=== PATIENT | female | born 1940 | race Caucasian/White ===

== ENCOUNTER 2018-03-21 13:46 | Emergency (ER) | payer OTHER ==
[~2018-03-21] VITALS: Ht 162.6 cm; Wt 63.5 kg
[~2018-03-21 13:46] MED LIST: ABAC300; ALL DAY ALLERGY10 M1 PO; ALLERGY RELIE15.8 ML; ASPI81CH PO; CALCIUM; CEPH500 PO; CHOL10002; CHOL10002 PO; CLARITIN10 MG PO; CYCL10 PO; DEXL60CA3 PO; DIVA500ER PO; DOCU100 PO; DONE5 PO; DULO30 PO; DULO60 PO; FERR325 PO; FOLI1 PO; LORA.5 PO; MELA3 PO; MEMA5TAB PO; METTREX2.5 PO; MULVITMIND PO; Midodrine HCl10 MG PO; Moviprep Powde1 EACH PO; NAPR220 PO; NITR100CA PO; NUEDEXTA 20-101 EACH PO; Norco 5-325 Ta1 EACH PO; PANT40 PO; PRED1 PO; PRED20 PO; PREG50 PO; PRILOSEC; Pain Relief500 MG PO; Percocet 5-3251 EACH PO; QUET100 PO; QUET25 PO; QUETIAPINE FUMA50 MG PO; RANI150 PO; RXHYD5325 PO; RXOXYACE PO; TRAM50 PO; TRAZ100 PO; UNKNOWN PAIN MED; VITAMIN D32000 UNIT PO; Zofran Odt8 MG SL; Zofran4 MG PO; ativan; divalproex; melatonin; milk of magnesia; tylenol
== END 2018-03-21 16:31 | disposition home or self-care (01) ==
LOC: ER 13:46
DX: T14.8XXA Other injury of unspecified body region, initial encounter (principal); M54.6 Pain in thoracic spine; K21.9 Gastro-esophageal reflux disease without esophagitis; F03.90 Unspecified dementia, unspecified severity, without behavioral disturbance, psychotic disturbance, mood disturbance, and anxiety; Z88.8 Allergy status to other drugs, medicaments and biological substances; Z79.899 Other long term (current) drug therapy; Z79.82 Long term (current) use of aspirin; Z79.52 Long term (current) use of systemic steroids; Z87.891 Personal history of nicotine dependence; W18.30XA Fall on same level, unspecified, initial encounter
CPT/HCPCS: 72080; 99283-25

== ENCOUNTER → 2018-04-16 | Outpatient (CLI) | payer OTHER ==
[~2018-04-16] MED LIST changes: +Cranberry500 MG PO
[2018-04-16 10:55] LABS: Source, Urine Clean Catch
[2018-04-16 11:15] LABS: Bilirubin, Urine Neg (Neg); Blood, Urine Neg (Neg); Glucose Qualitative, Urine Neg (Neg); Ketones, Urine Neg (Neg); Leukocyte Esterase, Urine 1+ (Neg); Nitrite, Urine Neg (Neg); Protein, Urine Neg (Neg); Specific Gravity, Urine 1.015 (1.003-1.022); Urobilinogen, Urine NORM (Normal)
[2018-04-16 11:33] LABS: Appearance, Urine Clear (Clear); Color, Urine Yellow (P-Yellow)
[2018-04-16 11:35] LABS: Red Blood Cells, Urine 0-2 /hpf (0-2)
[2018-04-16 11:36] LABS: Squamous Epithelial Cells Few /hpf (Few)
[2018-04-16 11:37] LABS: Bacteria Many /hpf
== END ==
LOC: LAB SHORT 10:52 → LAB 10:52
PROVIDERS: Nurse Practitioner Family
DX: N39.0 Urinary tract infection, site not specified (principal)
CPT/HCPCS: 81001

== ENCOUNTER 2018-04-17 15:20 | Emergency (ER) | payer OTHER ==
[~2018-04-17] VITALS: Ht 160 cm; Wt 63.5 kg
[~2018-04-17 15:20] MED LIST changes: -Cranberry500 MG PO
[2018-04-17 16:04] LABS: Source, Urine Catheter
[2018-04-17] MEDS ORDERED: Cranberry500 MG PO (16:05)
[2018-04-17 16:08] LABS: Appearance, Urine Clear (Clear); Bilirubin, Urine Neg (Neg); Blood, Urine Neg (Neg); Color, Urine Yellow (P-Yellow); Glucose Qualitative, Urine Neg (Neg); Ketones, Urine Neg (Neg); Leukocyte Esterase, Urine Neg (Neg); Nitrite, Urine Neg (Neg); Protein, Urine Neg (Neg); Specific Gravity, Urine 1.015 (1.003-1.022); Urobilinogen, Urine NORM (Normal)
[2018-04-17 16:10] LABS: BASOPHILS ABSOLUTE AUTO 0.03 K/mm3 (0.00-0.23); BASOPHILS PERCENT AUTO 1 % (0-2); EOSINOPHILS ABSOLUTE AUTO 0.05 K/mm3 (0.00-0.68); EOSINOPHILS PERCENT AUTO 1 % (0-6); Hematocrit 39.6 % (33.0-51.0); Hemoglobin 13.1 g/dL (11.5-16.0); IMMATURE GRAN ABSOLUTE AUTO 0.02 K/mm3 (0.00-0.10); IMMATURE GRAN PERCENT AUTO 0 % (0-1); LYMPHOCYTES PERCENT AUTO 18 % (21-46); MONOCYTES ABSOLUTE AUTO 0.46 K/mm3 (0.16-1.47); MONOCYTES PERCENT AUTO 7 % (4-13); Mean Corpuscular HGB 32.9 pg (26.0-34.0); Mean Corpuscular HGB Conc 33.1 g/dL (31.5-36.5); Mean Corpuscular Volume 100 fL (80-100); Mean Platelet Volume 11.2 fL (9.1-12.4); NEUTROPHILS ABSOLUTE AUTO 4.76 K/mm3 (1.96-9.15); NEUTROPHILS PERCENT AUTO 73 % (41-73); Platelet Count 151 K/mm3 (150-400); RDW Coefficient Variation 13.9 % (11.7-14.2); RDW Standard Deviation 50.3 fL (35.1-46.3); Red Blood Cell Count 3.98 M/mm3 (3.80-5.20); White Blood Cell Count 6.52 K/mm3 (4.00-11.30)
[2018-04-17 16:22] LABS: International Normalized Ratio 1.19; Prothrombin Time Results 12.1 Sec (9.7-11.5)
[2018-04-17 16:35] LABS: Alanine Aminotransfer (ALT/SGP 20 U/L (12-78); Albumin, Blood 3.2 g/dL (3.4-5.0); Albumin/Globulin Ratio 0.9 (0.8-1.8); Alk Phos 60 U/L (50-136); Anion Gap 8 mmol/L (6-16); Aspartate Aminotrans (AST/SGOT 19 U/L (12-37); Bilirubin, Total 0.4 mg/dL (0.1-1.0); Blood Urea Nitrogen 14 mg/dL (8-24); Bun/Creatinine Ratio 16.9 (12.0-20.0); CO2, Blood 25 mmol/L (21-32); Calcium, Blood 8.4 mg/dL (8.5-10.1); Chloride, Blood 105 mmol/L (98-108); Creatinine, Blood 0.83 mg/dL (0.40-1.00); Globulin, Blood 3.4 g/dL (2.2-4.0); Glomerular Filtration Rate >60 (60-); Glucose, Blood 101 mg/dL (70-99); Magnesium, Blood 2.2 mg/dL (1.6-2.4); Potassium, Blood 3.9 mmol/L (3.5-5.5); Sodium, Blood 138 mmol/L (136-145); Total Protein, Blood 6.6 g/dL (6.4-8.2)
[2018-04-17 17:33] LABS: Valproic Acid 64.6 ug/mL (50.0-100.0)
== END 2018-04-17 18:55 | disposition home or self-care (01) ==
LOC: ER 15:20
PROVIDERS: Physician Assistant
DX: R53.83 Other fatigue (principal); F03.90 Unspecified dementia, unspecified severity, without behavioral disturbance, psychotic disturbance, mood disturbance, and anxiety; K21.9 Gastro-esophageal reflux disease without esophagitis; Z88.8 Allergy status to other drugs, medicaments and biological substances; Z79.899 Other long term (current) drug therapy; Z79.82 Long term (current) use of aspirin; Z87.891 Personal history of nicotine dependence
CPT/HCPCS: 36415; 80053; 80164; 81003; 82947; 83735; 85025; 85610; 93005; 93010; 96360; 99284-25; J7030; P9612

== ENCOUNTER 2018-05-03 10:09 | Emergency (ER) | payer OTHER ==
[~2018-05-03] VITALS: Ht 157.5 cm; Wt 59.0 kg
[~2018-05-03 10:09] MED LIST changes: +Cranberry500 MG PO
[2018-05-03 10:45] LABS: Calcium, Ionized (POC) 1.05 mmol/L (1.10-1.46); Chloride (POC) 104 mmol/L (98-108); Creatinine (POC) 0.9 mg/dL (0.6-1.0); Glucose (ISTAT POC) 78 mg/dL (70-99); Hemoglobin (POC) 12.9 g/dL (12.0-16.0); Potassium (POC) 3.7 mmol/L (3.5-5.5); Sodium (POC) 141 mmol/L (135-148); Total CO2 (POC) 28 mmol/L (21-32)
== END 2018-05-03 13:45 | disposition home or self-care (01) ==
LOC: ER 10:09
PROVIDERS: Emergency Medicine
DX: Z04.3 Encounter for examination and observation following other accident (principal); K21.9 Gastro-esophageal reflux disease without esophagitis; F03.90 Unspecified dementia, unspecified severity, without behavioral disturbance, psychotic disturbance, mood disturbance, and anxiety; Z88.8 Allergy status to other drugs, medicaments and biological substances; Z79.899 Other long term (current) drug therapy; Z79.82 Long term (current) use of aspirin; Z87.891 Personal history of nicotine dependence; W19.XXXA Unspecified fall, initial encounter
CPT/HCPCS: 36415; 70450; 80047; 85014; 93005; 93010; 99284-25

== ENCOUNTER 2018-05-04 20:48 | Emergency (ER) | payer OTHER ==
[~2018-05-04] VITALS: Ht 165.1 cm; Wt 61.2 kg
== END 2018-05-04 22:26 | disposition home or self-care (01) ==
LOC: ER 20:48
DX: S80.02XA Contusion of left knee, initial encounter (principal); M54.5 Low back pain; K21.9 Gastro-esophageal reflux disease without esophagitis; F03.90 Unspecified dementia, unspecified severity, without behavioral disturbance, psychotic disturbance, mood disturbance, and anxiety; Z88.8 Allergy status to other drugs, medicaments and biological substances; Z79.899 Other long term (current) drug therapy; Z79.82 Long term (current) use of aspirin; Z87.891 Personal history of nicotine dependence; W19.XXXA Unspecified fall, initial encounter
CPT/HCPCS: 72100; 73560-LT; 99283-25

== ENCOUNTER 2018-07-03 05:38 | Emergency (ER) | payer OTHER ==
[~2018-07-03] VITALS: Ht 157.5 cm; Wt 68.0 kg
[2018-07-03 06:45] LABS: Calcium, Ionized (POC) 1.06 mmol/L (1.10-1.46); Chloride (POC) 104 mmol/L (98-108); Glucose (ISTAT POC) 78 mg/dL (70-99); Hemoglobin (POC) 11.6 g/dL (12.0-16.0); Potassium (POC) 3.6 mmol/L (3.5-5.5); Sodium (POC) 141 mmol/L (135-148); Total CO2 (POC) 27 mmol/L (21-32)
[2018-07-03 07:20] LABS: Chloride (POC) 104 mmol/L (98-108); Glucose (ISTAT POC) 76 mg/dL (70-99); Hemoglobin (POC) 11.9 g/dL (12.0-16.0); Potassium (POC) 3.6 mmol/L (3.5-5.5); Sodium (POC) 141 mmol/L (135-148); Total CO2 (POC) 28 mmol/L (21-32)
[2018-07-03 07:20] LABS: Source, Urine Clean Catch
[2018-07-03 07:25] LABS: Bilirubin, Urine Neg (Neg); Blood, Urine 3+ (Neg); Glucose Qualitative, Urine Neg (Neg); Ketones, Urine 1+ (Neg); Leukocyte Esterase, Urine 3+ (Neg); Nitrite, Urine Pos (Neg); Protein, Urine 1+ (Neg); Specific Gravity, Urine 1.015 (1.003-1.022); Urobilinogen, Urine 1+ (Normal)
[2018-07-03 07:36] LABS: Appearance, Urine Cloudy (Clear); Color, Urine Yellow (P-Yellow)
[2018-07-03 07:38] LABS: Bacteria Many /hpf; Red Blood Cells, Urine 0-2 /hpf (0-2); Squamous Epithelial Cells Few /hpf (Few); White Blood Cells, Urine TNTC /hpf (0-5)
[2018-07-03] MEDS ORDERED: Macrobid 100 M100 MG PO (07:42)
== END 2018-07-03 09:29 | disposition home or self-care (01) ==
LOC: ER 05:38
PROVIDERS: Emergency Medicine
DX: S00.01XA Abrasion of scalp, initial encounter (principal); F03.90 Unspecified dementia, unspecified severity, without behavioral disturbance, psychotic disturbance, mood disturbance, and anxiety; K21.9 Gastro-esophageal reflux disease without esophagitis; Z88.8 Allergy status to other drugs, medicaments and biological substances; Z79.899 Other long term (current) drug therapy; Z79.82 Long term (current) use of aspirin; Z87.891 Personal history of nicotine dependence; W01.0XXA Fall on same level from slipping, tripping and stumbling without subsequent striking against object, initial encounter
CPT/HCPCS: 70450; 80047; 81001; 85014; 87077; 87086; 87186; 93005; 93010; 99284-25

== ENCOUNTER 2018-09-11 19:20 | Emergency (ER) | payer OTHER ==
[~2018-09-11] VITALS: Ht 157.5 cm; Wt 77.1 kg
[~2018-09-11 19:20] MED LIST changes: +Keflex500 MG PO; +Macrobid 100 M100 MG PO; +Milk Of Ma400 MG/5 M PO; +QUET200 PO; +TRANZAREL120 ML TOP; +Tylenol325 MG PO
[2018-09-11] MEDS ORDERED: MEMA5TAB PO (19:35)
== END 2018-09-11 21:30 | disposition home or self-care (01) ==
LOC: ER 19:20
DX: S09.90XA Unspecified injury of head, initial encounter (principal); Z88.8 Allergy status to other drugs, medicaments and biological substances; Z79.899 Other long term (current) drug therapy; Z79.82 Long term (current) use of aspirin; Z79.52 Long term (current) use of systemic steroids; K21.9 Gastro-esophageal reflux disease without esophagitis; Z87.891 Personal history of nicotine dependence; W18.30XA Fall on same level, unspecified, initial encounter
CPT/HCPCS: 70450; 99284-25

== ENCOUNTER → 2018-09-18 | Outpatient (CLI) | payer OTHER ==
[2018-09-18 11:19] LABS: Source, Urine Voided
[2018-09-18 11:43] LABS: Appearance, Urine Hazy (Clear); Bilirubin, Urine Neg (Neg); Blood, Urine Neg (Neg); Color, Urine Yellow (P-Yellow); Glucose Qualitative, Urine Neg (Neg); Ketones, Urine Neg (Neg); Leukocyte Esterase, Urine Neg (Neg); Nitrite, Urine Neg (Neg); Protein, Urine Neg (Neg); Specific Gravity, Urine 1.015 (1.003-1.022); Urobilinogen, Urine NORM (Normal)
[2018-09-18 17:16] LABS: Amorphous Light (0-Heavy); Bacteria Few /hpf; Red Blood Cells, Urine Not Seen /hpf (0-2); Squamous Epithelial Cells Rare /hpf (Few); White Blood Cells, Urine 0-2 /hpf (0-5)
== END | disposition home or self-care (01) ==
LOC: LAB SHORT 09:30 → LAB 09:30
PROVIDERS: Nurse Practitioner Family
DX: Z79.01 Long term (current) use of anticoagulants (principal); Z51.81 Encounter for therapeutic drug level monitoring; N39.0 Urinary tract infection, site not specified
CPT/HCPCS: 81001

== ENCOUNTER → 2018-10-02 | Outpatient (CLI) | payer OTHER ==
[2018-10-02 11:03] LABS: Source, Urine Clean Catch
[2018-10-02 11:12] LABS: Blood, Urine 1+ (Neg); Glucose Qualitative, Urine Neg (Neg); Ketones, Urine 1+ (Neg); Leukocyte Esterase, Urine 2+ (Neg); Nitrite, Urine Neg (Neg); Protein, Urine 2+ (Neg); Specific Gravity, Urine 1.025 (1.003-1.022); Urobilinogen, Urine 2+ (Normal)
[2018-10-02 11:42] LABS: Bilirubin, Urine 1+ (Neg)
[2018-10-02 11:47] LABS: Appearance, Urine Hazy (Clear); Color, Urine Yellow (P-Yellow); Red Blood Cells, Urine 0-2 /hpf (0-2); Squamous Epithelial Cells Few /hpf (Few)
[2018-10-02 11:48] LABS: Bacteria Few /hpf; Calcium Oxalate Crystals Many /hpf; Hyaline Casts Rare /lpf (0-2); Mucus Light ({null, 0-Heavy})
== END | disposition home or self-care (01) ==
LOC: LAB SHORT 07:30 → LAB 07:30
PROVIDERS: Nurse Practitioner Family
DX: N39.0 Urinary tract infection, site not specified (principal)
CPT/HCPCS: 81001; 87077; 87086; 87186

== ENCOUNTER → 2019-01-01 | Outpatient (CLI) | payer OTHER ==
[2019-01-01 11:23] LABS: Appearance, Urine Clear (Clear); Bilirubin, Urine Neg (Neg); Blood, Urine Neg (Neg); Color, Urine Yellow (P-Yellow); Glucose Qualitative, Urine Neg (Neg); Ketones, Urine Neg (Neg); Leukocyte Esterase, Urine 2+ (Neg); Nitrite, Urine Neg (Neg); Protein, Urine Neg (Neg); Urobilinogen, Urine 1+ (Normal)
[2019-01-01 11:33] LABS: Bacteria Few /hpf; Red Blood Cells, Urine 0-2 /hpf (0-2); Squamous Epithelial Cells Few /hpf (Few)
== END | disposition home or self-care (01) ==
LOC: LAB SHORT 11:07 → LAB 11:07
PROVIDERS: Nurse Practitioner Family
DX: N39.0 Urinary tract infection, site not specified (principal); R41.82 Altered mental status, unspecified
CPT/HCPCS: 81001; 87077; 87086; 87186

== ENCOUNTER 2019-02-08 16:02 | Emergency (ER) | payer OTHER ==
[~2019-02-08] VITALS: Ht 157.5 cm; Wt 54.4 kg
[2019-02-08 17:07] LABS: Source, Urine Clean Catch
[2019-02-08] MEDS ORDERED: MEMA10 PO (17:14)
[2019-02-08 17:16] LABS: Bilirubin, Urine Neg (Neg); Blood, Urine Neg (Neg); Glucose Qualitative, Urine Neg (Neg); Ketones, Urine Neg (Neg); Leukocyte Esterase, Urine 1+ (Neg); Nitrite, Urine Neg (Neg); Protein, Urine Neg (Neg); Specific Gravity, Urine 1.015 (1.003-1.022); Urobilinogen, Urine NORM (Normal); pH, Urine 6.5 (5.0-8.0)
[2019-02-08] MEDS ORDERED: NUEDEXTA 20-101 EACH PO (17:16)
[2019-02-08] MEDS ORDERED: QUETIAPINE FUM100 MG PO (17:17)
[2019-02-08 17:35] LABS: Appearance, Urine Clear (Clear); Color, Urine Yellow (P-Yellow)
[2019-02-08 17:38] LABS: Bacteria Few /hpf; Red Blood Cells, Urine 0-2 /hpf (0-2); Squamous Epithelial Cells Rare /hpf (Few)
[2019-02-08] MEDS ORDERED: Cipro500 MG PO (18:11)
== END 2019-02-08 19:03 | disposition home or self-care (01) ==
LOC: ER 16:02
PROVIDERS: Physician Assistant
DX: G30.9 Alzheimer's disease, unspecified (principal); F02.80 Dementia in other diseases classified elsewhere, unspecified severity, without behavioral disturbance, psychotic disturbance, mood disturbance, and anxiety; N39.0 Urinary tract infection, site not specified; Z87.891 Personal history of nicotine dependence; K21.9 Gastro-esophageal reflux disease without esophagitis
CPT/HCPCS: 71046; 81001; 87086; 93005; 93010; 96360; 99285-25; J7030

== ENCOUNTER 2019-04-07 07:56 | Inpatient (IN) | payer OTHER ==
[~2019-04-07] VITALS: Ht 167.6 cm; Wt 59.3 kg
[~2019-04-07 07:56] MED LIST changes: +Cipro500 MG PO; +MEMA10 PO; +QUETIAPINE FUM100 MG PO
[2019-04-07 09:23] LABS: BASOPHILS ABSOLUTE AUTO 0.06 K/mm3 (0.00-0.23); BASOPHILS PERCENT AUTO 1 % (0-2); EOSINOPHILS ABSOLUTE AUTO 0.15 K/mm3 (0.00-0.68); EOSINOPHILS PERCENT AUTO 2 % (0-6); Hematocrit 38.7 % (33.0-51.0); Hemoglobin 12.5 g/dL (11.5-16.0); IMMATURE GRAN ABSOLUTE AUTO 0.01 K/mm3 (0.00-0.10); IMMATURE GRAN PERCENT AUTO 0 % (0-1); LYMPHOCYTES ABSOLUTE AUTO 2.29 K/mm3 (0.84-5.20); LYMPHOCYTES PERCENT AUTO 37 % (21-46); MONOCYTES ABSOLUTE AUTO 0.61 K/mm3 (0.16-1.47); MONOCYTES PERCENT AUTO 10 % (4-13); Mean Corpuscular HGB 33.5 pg (26.0-34.0); Mean Corpuscular HGB Conc 32.3 g/dL (31.5-36.5); Mean Corpuscular Volume 104 fL (80-100); Mean Platelet Volume 11.7 fL (9.1-12.4); NEUTROPHILS ABSOLUTE AUTO 3.06 K/mm3 (1.96-9.15); NEUTROPHILS PERCENT AUTO 49 % (41-73); Platelet Count 151 K/mm3 (150-400); RDW Coefficient Variation 14.6 % (11.7-14.2); RDW Standard Deviation 55.2 fL (35.1-46.3); Red Blood Cell Count 3.73 M/mm3 (3.80-5.20); White Blood Cell Count 6.18 K/mm3 (4.00-11.30)
[2019-04-07 09:48] LABS: Alanine Aminotransfer (ALT/SGP 24 U/L (12-78); Albumin, Blood 3.3 g/dL (3.4-5.0); Alk Phos 60 U/L (50-136); Anion Gap 7 mmol/L (6-16); Aspartate Aminotrans (AST/SGOT 23 U/L (12-37); Bilirubin, Total 0.5 mg/dL (0.1-1.0); Blood Urea Nitrogen 17 mg/dL (8-24); Bun/Creatinine Ratio 21.7 (12.0-20.0); CO2, Blood 29 mmol/L (21-32); Calcium, Blood 8.5 mg/dL (8.5-10.1); Chloride, Blood 107 mmol/L (98-108); Creatinine, Blood 0.78 mg/dL (0.40-1.00); Globulin, Blood 3.3 g/dL (2.2-4.0); Glomerular Filtration Rate >60 (60-); Glucose, Blood 76 mg/dL (70-99); Potassium, Blood 3.6 mmol/L (3.5-5.5); Sodium, Blood 143 mmol/L (136-145); Total Protein, Blood 6.6 g/dL (6.4-8.2)
[2019-04-07] MEDS ORDERED: NUEDEXTA 20-101 EACH PO (12:33)
--- NOTE | 2019-04-07 12:58 | NUR ---
FENTANYL GIVEN BEFORE REPOSITIONING, PT TOLERATED WELL, DAUGHTER AT BEDSIDE.
[2019-04-07] MEDS ORDERED: ASPI81CH PO (13:01)
[2019-04-07] MEDS ORDERED: DIVA500ER PO (13:01)
--- NOTE | 2019-04-07 18:05 | NUR ---
PT TAKEN TO OR.
[2019-04-07 22:19] LABS: BASOPHILS ABSOLUTE AUTO 0.03 K/mm3 (0.00-0.23); BASOPHILS PERCENT AUTO 0 % (0-2); EOSINOPHILS PERCENT AUTO 0 % (0-6); Hematocrit 36.4 % (33.0-51.0); IMMATURE GRAN ABSOLUTE AUTO 0.05 K/mm3 (0.00-0.10); IMMATURE GRAN PERCENT AUTO 0 % (0-1); LYMPHOCYTES ABSOLUTE AUTO 0.42 K/mm3 (0.84-5.20); LYMPHOCYTES PERCENT AUTO 4 % (21-46); MONOCYTES ABSOLUTE AUTO 0.28 K/mm3 (0.16-1.47); MONOCYTES PERCENT AUTO 2 % (4-13); Mean Corpuscular HGB 34.4 pg (26.0-34.0); Mean Corpuscular Volume 104 fL (80-100); Mean Platelet Volume 12.1 fL (9.1-12.4); NEUTROPHILS ABSOLUTE AUTO 10.79 K/mm3 (1.96-9.15); NEUTROPHILS PERCENT AUTO 93 % (41-73); Platelet Count 150 K/mm3 (150-400); RDW Coefficient Variation 14.6 % (11.7-14.2); RDW Standard Deviation 54.8 fL (35.1-46.3); Red Blood Cell Count 3.49 M/mm3 (3.80-5.20); White Blood Cell Count 11.57 K/mm3 (4.00-11.30)
--- NOTE | 2019-04-08 06:43 | NUR ---
SUMMARY PT HAS DONE WELL THROUGH THE NIGHT. SHE WAS NAUSEATED X2 SHORTLY AFTER RETURNING TO THE FLOOR ZOFRAN WAS GIVEN. PT HAS BEEN ABLE TO HOLD DOWN PUDDING, WATER AND HER NIGHT MEDS SINCE THEN. PAIN MEDICATED WITH 25 MCG IV FENTANYL X2. ANITA NICOLAS REMAINS C/D/I. CIRC WNL. PRESTON PATENT, CLEAR YELLOW URINE NOTED, FREQUENT REORIENTATION PROVIDED DUE TO CONFUSION/DEMENTIA. BED ALARM IS ON FOR SAFETY. PT HAS REMAINED CALM AND COOPERATIVE. THE PT'S SON WAS AT THE BEDSIDE FOR A FEW HRS AFTER SURGERY AND HER DAUGHTER (RACHEL) WAS CALLED WITH AN UPDATE PER HER REQUEST THROUGH THE NIGHT. CALL LIGHT IN REACH.
[2019-04-08 09:41] LABS: BASOPHILS ABSOLUTE AUTO 0.02 K/mm3 (0.00-0.23); BASOPHILS PERCENT AUTO 0 % (0-2); EOSINOPHILS PERCENT AUTO 0 % (0-6); Hematocrit 33.9 % (33.0-51.0); Hemoglobin 11.2 g/dL (11.5-16.0); IMMATURE GRAN ABSOLUTE AUTO 0.03 K/mm3 (0.00-0.10); IMMATURE GRAN PERCENT AUTO 0 % (0-1); LYMPHOCYTES ABSOLUTE AUTO 0.72 K/mm3 (0.84-5.20); LYMPHOCYTES PERCENT AUTO 7 % (21-46); MONOCYTES ABSOLUTE AUTO 1.15 K/mm3 (0.16-1.47); MONOCYTES PERCENT AUTO 11 % (4-13); Mean Corpuscular HGB 33.5 pg (26.0-34.0); Mean Corpuscular Volume 102 fL (80-100); Mean Platelet Volume 11.9 fL (9.1-12.4); NEUTROPHILS ABSOLUTE AUTO 8.65 K/mm3 (1.96-9.15); NEUTROPHILS PERCENT AUTO 82 % (41-73); Platelet Count 161 K/mm3 (150-400); RDW Coefficient Variation 14.7 % (11.7-14.2); RDW Standard Deviation 53.3 fL (35.1-46.3); Red Blood Cell Count 3.34 M/mm3 (3.80-5.20); White Blood Cell Count 10.57 K/mm3 (4.00-11.30)
--- NOTE | 2019-04-08 13:02 | NUR ---
04/08/19 1302 Yvette Rodriguez VERIFICATIONS: EDIT CHART.
--- NOTE | 2019-04-08 18:09 | NUR ---
SHIFT SUMMARY PT CONFUSED, PLEASANT & COOPERATIVE, VSS. POD1 ORIF L DISTAL FEMUR, AQUACEL CDI, STRICT NWB. DENIES PAIN. DENIES N&V, MERY PO. AMB STAND/PIVOT W/FWW & GB TO CHAIR TODAY. PRESTON REMOVED, AWAITING POST VOID. NO IV ACCESS NEEDED ORDER BY HOSPITALIST, AFTER PT REMOVED BOTH IVS. PLAN IS TO RETURN PT TO [facility] WHERE SHE RESIDES TOMORROW, WITH HH/PT. WCTM & TX PRN UNTIL REPORT GIVEN TO ONCOMING MEJIA RN.
[2019-04-08 20:14] LABS: BASOPHILS ABSOLUTE AUTO 0.02 K/mm3 (0.00-0.23); BASOPHILS PERCENT AUTO 0 % (0-2); EOSINOPHILS ABSOLUTE AUTO 0.01 K/mm3 (0.00-0.68); EOSINOPHILS PERCENT AUTO 0 % (0-6); Hematocrit 33.3 % (33.0-51.0); Hemoglobin 10.7 g/dL (11.5-16.0); IMMATURE GRAN ABSOLUTE AUTO 0.05 K/mm3 (0.00-0.10); IMMATURE GRAN PERCENT AUTO 0 % (0-1); LYMPHOCYTES ABSOLUTE AUTO 1.61 K/mm3 (0.84-5.20); LYMPHOCYTES PERCENT AUTO 14 % (21-46); MONOCYTES ABSOLUTE AUTO 2.36 K/mm3 (0.16-1.47); MONOCYTES PERCENT AUTO 21 % (4-13); Mean Corpuscular HGB 33.5 pg (26.0-34.0); Mean Corpuscular HGB Conc 32.1 g/dL (31.5-36.5); Mean Corpuscular Volume 104 fL (80-100); Mean Platelet Volume 12.8 fL (9.1-12.4); NEUTROPHILS ABSOLUTE AUTO 7.35 K/mm3 (1.96-9.15); NEUTROPHILS PERCENT AUTO 65 % (41-73); Platelet Count 111 K/mm3 (150-400); RDW Coefficient Variation 14.9 % (11.7-14.2); RDW Standard Deviation 56.5 fL (35.1-46.3); Red Blood Cell Count 3.19 M/mm3 (3.80-5.20)
--- NOTE | 2019-04-09 02:05 | NUR ---
ASSUMED CARE OF PT. PT ALERT/CONFUSED. PT C/O PAIN IN LLE, TYLENOL GIVEN PER ORDERS, ICE APPLIED. BED ALARM ON FOR SAFETY.
--- NOTE | 2019-04-09 05:30 | NUR ---
POD 2 S/P LEFT DISTAL FEMUR REPAIR. PT VSS T/O NIGHT. DRESSINGS CDI. PAIN MGD W/TYLENOL, ICE AND GENTLE REPOSITIONING. PT UNABLE TO VOID THIS SHIFT, I/O CATH DONE FOR BLADDER SCAN >1200. PT CONFUSED, NEEDING FREQUENT REORIENTATION TO PLACE AND EVENT. BED ALARM ON FOR SAFETY. WILL CONT TO MONITOR UNTIL REP GIVEN TO ONCOMING RN.
--- NOTE | 2019-04-09 18:33 | NUR ---
SHIFT SUMMARY PT HAS DONE WELL THIS SHIFT. WORKED WITH THERAPY. UP TO CHAIR MOST OF THE DAY. MEDICATED WITH TYLENOL ONCE AND 5/325MG NORCO ONCE THIS SHIFT. PT VOIDED ONCE GREATER THAN 600ML. BSC W/2 PERSON MAX ASSIST. PLAN IS TO DC BACK TO [facility] ON FRIDAY
--- NOTE | 2019-04-10 07:24 | NUR ---
SHIFT SUMMARY LYING IN LOW FOWLERS WITH EYES CLOSED. HAS RESTED WELL THROUGHOUT SHIFT. C/O PAIN SEVERAL TIMES, REPOSITIONED FOR COMFORT AND MEDICATED X1. DENIES PAIN, DISCOMFORT, OR FURTHER NEEDS AT THIS TIME. SAFETY MEASURES IN PLACE. HAND OFF GIVEN TO Abraham GARNER RN USING SBAR.
--- NOTE | 2019-04-10 08:42 | NUR ---
STRAIGHT CATH REQUIRED TO EMPTY BLADDER. PT TOLERATED WELL. BLADDER SCAN SHOWED 800ML IN BLADDER, GOT 1000ML OUT WITH STRAIGHT CATH. PT ATTEMPTED TO VOID ON BEDSIDE COMMODE AND BEDPAN PRIOR TO STRAIGHT CATH.
--- NOTE | 2019-04-10 13:53 | NUR ---
PAIN PAIN APPEARS TO BE MANAGED WELL WITH NORCO, HOWEVER IT DOES NOT APPEAR TO LAST THE PT [address] DOMINGUEZ NOTIFIED AND PAIN MEDICATION WAS CHANGED TO EVERY 4 HOURS. PT ASSISTED INTO A RECLINED POSITION TO ELEVATE HER LEG, ICE WAS PLACED OVER INCISION SITE, MUSIC CHANNEL ON TV FOR RELAXATION/DISTRACTION, RN SAT AND TALKED WITH PT FOR COMFORT. WILL CONTINUE TO MONITOR.
--- NOTE | 2019-04-10 18:19 | NUR ---
SHIFT SUMMARY PAIN HAS BEEN MANAGED WITH PO PAIN MEDICATION THIS SHIFT. PT HAS BEEN TEARFUL AT TIMES R/T PAIN, FREQUENCY OF PAIN MEDICATION WAS INCREASED TO EVERY 4 HOURS, PT TOLERATING WELL. PT HAS REMAINED CONFUSED THIS SHIFT, SHE IS ALERT AND ORIENTED X2. PT IS A 1 ASSIST WITH TRANSFERS. VSS. WILL MONITOR UNTIL REPORT TO ONCOMING RN.
--- NOTE | 2019-04-11 05:45 | NUR ---
SHIFT SUMMARY LYING IN LOW FOWLERS WITH EYES CLOSED. HAS RESTED THROUGHOUT SHIFT. C/O PAIN X2, REPOSITIONED SELF FOR COMFORT AND MEDICATED X1. AMBULATED TO BSC X3 THIS SHIFT, EXCELELNT OUTPUT NOTED. SAFETY MEASURES IN PLACE. WILL GIVE HAND OFF TO ONCOMING SHIFT USING SBAR.
[2019-04-11 15:30] LABS: Hematocrit 34.6 % (33.0-51.0); Hemoglobin 10.9 g/dL (11.5-16.0)
--- NOTE | 2019-04-11 16:36 | NUR ---
INCREASED HR, ANXIETY, PAIN AT APPROXIMIMATELY 1453 VS WERE CHECKED BY MARKEL STEIN; HR AT THAT TIME WAS ELEVATED AT 123 AND BP 100/70. PT STARTED TO BECOME VERY ANXIOUS AND COMPLAINED OF PAIN ALTHOUGH SHE COULD NOT PINPOINT THE LOCATION OF THE PAIN. DR. DOMINGUEZ NOTIFIED OF TACHYCARDIA. H&H OBTAINED BY LAB. EKG X2 OBTAINED BY HUMAN RESOURCES TEAM MEMBER AND PT'S PRIMARY RN. PT WAS UNABLE TO HOLD STILL DURING THE FIRST EKG R/T PAIN/ANXIETY. IV WAS STARTED AND PT GIVEN FENTANYL 12.5MCG TO MANAGE PAIN. SECOND EKG WAS ATTEMPTED WHEN PT RELAXED. EKG SHOWED TACHYCARDIA. DR. DOMINGUEZ NOTIFIED, NORMAL SALINE BOLUS ORDERED AND STARTED.
--- NOTE | 2019-04-11 18:41 | NUR ---
SHIFT SUMMARY PAIN HAS BEEN MANAGED WITH PO PAIN MEDICATION THIS SHIFT. PT HAD SOME INCREASED ANXIETY THIS AFTERNOON. PT HAS BEEN CONFUSED T/O THE SHIFT, PT IS ORIENTED X2. PT IS A 1-2 PERSON STAND/PIVOT TRANSFER. PT HAS DIFFICULTY MAINTAINING WEIGHT BEARING STATUS. PT'S DAUGHTER CAME AND VISITED THIS SHIFT. PLAN FOR POSSIBLE DISCHARGE BACK TO [facility] TOMORROW. PT WAS TACHYCARDIC THIS AFTERNOON, 500ML NS BOLUS GIVEN. VSS AT THIS TIME. WILL MONITOR UNTIL REPORT TO ONCOMING RN.
--- NOTE | 2019-04-12 06:25 | NUR ---
SHIFT SUMMARY LYING IN LOW FOWLERS WITH EYES CLOSED. HAS RESTED THROUGHOUT SHIFT. C/O PAIN X1, REPOSITIONED SELF FOR COMFORT AND MEDICATED X1. AMBULATED TO BSC X2 THIS SHIFT, TOLERATED WELL. SAFETY MEASURES IN PLACE. WILL GIVE HAND OFF TO ONCOMING SHIFT USING SBAR.
--- NOTE | 2019-04-12 07:32 | NUR ---
PT APPEARS TO BE RESTING COMFORTABLY AT THIS TIME. DOES NOT APPEAR TO BE IN ANY PAIN. BED ALARM ON.
--- NOTE | 2019-04-12 12:53 | NUR ---
DISCHARGE PT DISCHARGED HOME FROM UNIT AT APROX 1250. PT GIVEN WRITTEN AND VERBAL DISCHARGE INSTRUCTIONS BY PRIMARY RN. IV REMOVED-PT TOLERATED WELL. WHEELCHAIR TO CAR.
--- NOTE | 2019-04-12 16:31 | NUR ---
DISCHARGE PT DISCHARGED BACK TO [facility] AT APROX 1607 VIA WHEELCHAIR TRANSPORT. REPORT GIVEN TO [facility]. EXTRA DRESSINGS SENT WITH DC PACKET WELL HARD COPY FOR PAIN MEDICATION. IV REMOVED, PT TOLERATED WELL.
== END 2019-04-12 16:07 | disposition home health service (06) | DRG 481 ==
LOC: ER 07:56 → SURS 09:44
PROVIDERS: Internal Medicine; Orthopaedic Surgery; Physician Assistant; ADMIT Family Medicine
PROC: 0QS904Z Reposition Left Femoral Shaft with Internal Fixation Device, Open Approach (ICD-10-PCS; principal; 2019-04-07 18:00)
DX: S72.452A Displaced supracondylar fracture without intracondylar extension of lower end of left femur, initial encounter for closed fracture (principal); M97.12XA Periprosthetic fracture around internal prosthetic left knee joint, initial encounter; K22.10 Ulcer of esophagus without bleeding; K21.9 Gastro-esophageal reflux disease without esophagitis; G30.9 Alzheimer's disease, unspecified; F02.80 Dementia in other diseases classified elsewhere, unspecified severity, without behavioral disturbance, psychotic disturbance, mood disturbance, and anxiety; I95.9 Hypotension, unspecified; D72.829 Elevated white blood cell count, unspecified; R33.9 Retention of urine, unspecified; M25.519 Pain in unspecified shoulder; T38.0X5A Adverse effect of glucocorticoids and synthetic analogues, initial encounter; J30.9 Allergic rhinitis, unspecified; G89.29 Other chronic pain; W18.30XA Fall on same level, unspecified, initial encounter; Y92.122 Bedroom in nursing home as the place of occurrence of the external cause; Z86.73 Personal history of transient ischemic attack (TIA), and cerebral infarction without residual deficits; Z88.8 Allergy status to other drugs, medicaments and biological substances; Z96.642 Presence of left artificial hip joint; Z87.820 Personal history of traumatic brain injury; Z87.891 Personal history of nicotine dependence; Z79.82 Long term (current) use of aspirin; Z79.51 Long term (current) use of inhaled steroids; Z79.52 Long term (current) use of systemic steroids; Z79.899 Other long term (current) drug therapy
CPT/HCPCS: 29505; 36415; 51702; 71045; 73560-LT; 73564; 80053; 85014; 85018; 85025; 86850; 86870; 86900; 86901; 86902; 86905; 93005; 93010; 96374-59; 96375-59; 97110; 97162; 97166; 97530; 97535; 99285-25; A9270; A9270-GY; C1713; J0690; J1100; J1170; J1650; J2370; J2405; J2704; J2710; J3010; J7030; J7120; J7512; J8610

== ENCOUNTER → 2019-04-19 | Outpatient (CLI) | payer OTHER ==
[2019-04-19 18:10] LABS: Bilirubin, Urine Neg (Neg); Blood, Urine 2+ (Neg); Glucose Qualitative, Urine Neg (Neg); Ketones, Urine Neg (Neg); Leukocyte Esterase, Urine 3+ (Neg); Nitrite, Urine Pos (Neg); Protein, Urine 2+ (Neg); Urobilinogen, Urine NORM (Normal)
[2019-04-19 18:25] LABS: Appearance, Urine Cloudy (Clear); Color, Urine Yellow (P-Yellow)
[2019-04-19 18:26] LABS: White Blood Cells, Urine TNTC /hpf (0-5)
[2019-04-19 18:28] LABS: Bacteria Many /hpf
[2019-04-19 18:29] LABS: Squamous Epithelial Cells Rare /hpf (Few)
== END | disposition home or self-care (01) ==
LOC: LAB 17:13 → LAB SHORT 17:13
PROVIDERS: Nurse Practitioner Family
DX: R82.998 Other abnormal findings in urine (principal)
CPT/HCPCS: 81001; 87077; 87086; 87186

== ENCOUNTER → 2019-04-30 | Outpatient (CLI) | payer OTHER ==
[2019-05-05 06:32] LABS: Stool Occult Bld Immuno 1 Negative (NEGATIVE)
== END | disposition home or self-care (01) ==
LOC: LAB 15:00 → LAB SHORT 15:00
PROVIDERS: Nurse Practitioner Family
DX: Z12.11 Encounter for screening for malignant neoplasm of colon (principal)
CPT/HCPCS: G0328

== ENCOUNTER → 2019-06-17 | Outpatient (CLI) | payer OTHER ==
[2019-06-17 15:32] LABS: Source, Urine Clean Catch
[2019-06-17 17:01] LABS: Bilirubin, Urine Neg (Neg); Blood, Urine Neg (Neg); Glucose Qualitative, Urine Neg (Neg); Ketones, Urine Neg (Neg); Leukocyte Esterase, Urine 1+ (Neg); Nitrite, Urine Neg (Neg); Protein, Urine Neg (Neg); Urobilinogen, Urine NORM (Normal)
[2019-06-17 17:11] LABS: Appearance, Urine Clear (Clear); Color, Urine Yellow (P-Yellow)
[2019-06-17 17:12] LABS: Bacteria Mod /hpf; Red Blood Cells, Urine 0-2 /hpf (0-2); Squamous Epithelial Cells Rare /hpf (Few)
== END | disposition home or self-care (01) ==
LOC: LAB SHORT 12:30 → LAB 12:30
PROVIDERS: Nurse Practitioner Family
DX: Z79.01 Long term (current) use of anticoagulants (principal); Z51.81 Encounter for therapeutic drug level monitoring; N39.0 Urinary tract infection, site not specified
CPT/HCPCS: 81001; 87086

== ENCOUNTER → 2019-08-10 | Outpatient (CLI) | payer OTHER ==
[2019-08-10 18:25] LABS: Appearance, Urine Clear (Clear); Bilirubin, Urine Neg (Neg); Blood, Urine Neg (Neg); Color, Urine Yellow (P-Yellow); Glucose Qualitative, Urine Neg (Neg); Ketones, Urine 1+ (Neg); Leukocyte Esterase, Urine 1+ (Neg); Nitrite, Urine Neg (Neg); Protein, Urine 1+ (Neg); Urobilinogen, Urine NORM (Normal)
[2019-08-10 18:57] LABS: Amorphous Mod (0-Heavy); Bacteria Few /hpf; Red Blood Cells, Urine Not Seen /hpf (0-2); Squamous Epithelial Cells Rare /hpf (Few); White Blood Cells, Urine 0-2 /hpf (0-5)
== END | disposition home or self-care (01) ==
LOC: LAB SHORT 16:22 → LAB 16:22
PROVIDERS: Nurse Practitioner Family
DX: N39.0 Urinary tract infection, site not specified (principal)
CPT/HCPCS: 81001; 87077; 87086; 87186

== ENCOUNTER → 2019-08-30 | Outpatient (CLI) | payer OTHER ==
[2019-08-30 13:55] LABS: Bilirubin, Urine Neg (Neg); Blood, Urine Neg (Neg); Glucose Qualitative, Urine Neg (Neg); Ketones, Urine Neg (Neg); Leukocyte Esterase, Urine Neg (Neg); Nitrite, Urine Neg (Neg); Protein, Urine Neg (Neg); Specific Gravity, Urine 1.015 (1.003-1.022); Urobilinogen, Urine NORM (Normal)
[2019-08-30 14:09] LABS: Appearance, Urine Clear (Clear); Color, Urine Yellow (P-Yellow)
== END | disposition home or self-care (01) ==
LOC: LAB 12:36 → LAB SHORT 12:36
PROVIDERS: Nurse Practitioner Family
DX: N39.0 Urinary tract infection, site not specified (principal)
CPT/HCPCS: 81003; 87086

== ENCOUNTER → 2019-09-13 | Outpatient (CLI) | payer OTHER ==
[2019-09-13 18:57] LABS: Source, Urine Clean Catch
[2019-09-13 19:40] LABS: Bilirubin, Urine Neg (Neg); Blood, Urine Neg (Neg); Glucose Qualitative, Urine Neg (Neg); Ketones, Urine Neg (Neg); Leukocyte Esterase, Urine Neg (Neg); Nitrite, Urine Neg (Neg); Protein, Urine Neg (Neg); Urobilinogen, Urine NORM (Normal)
[2019-09-13 19:45] LABS: Appearance, Urine Clear (Clear); Color, Urine Yellow (P-Yellow)
== END | disposition home or self-care (01) ==
LOC: LAB SHORT 18:55 → LAB 18:55
PROVIDERS: Nurse Practitioner Family
DX: N39.0 Urinary tract infection, site not specified (principal)
CPT/HCPCS: 81003; 87086

== ENCOUNTER → 2019-11-11 | Outpatient (CLI) | payer OTHER ==
[2019-11-11 19:49] LABS: Bilirubin, Urine Neg (Neg); Blood, Urine Neg (Neg); Glucose Qualitative, Urine Neg (Neg); Ketones, Urine Neg (Neg); Leukocyte Esterase, Urine Neg (Neg); Nitrite, Urine Neg (Neg); Protein, Urine Neg (Neg); Specific Gravity, Urine 1.015 (1.003-1.022); Urobilinogen, Urine NORM (Normal); pH, Urine 6.5 (5.0-8.0)
[2019-11-11 20:02] LABS: Appearance, Urine Clear (Clear); Color, Urine Yellow (P-Yellow)
== END ==
LOC: LAB SHORT 19:17
PROVIDERS: Nurse Practitioner Family
DX: N39.0 Urinary tract infection, site not specified (principal)
CPT/HCPCS: 81003; 87086

== ENCOUNTER 2019-11-23 17:15 | Emergency (ER) | payer OTHER ==
[~2019-11-23] VITALS: Ht 160 cm; Wt 72.6 kg
[2019-11-23 18:13] LABS: BASOPHILS ABSOLUTE AUTO 0.08 K/mm3 (0.00-0.23); BASOPHILS PERCENT AUTO 1 % (0-2); EOSINOPHILS ABSOLUTE AUTO 0.12 K/mm3 (0.00-0.68); EOSINOPHILS PERCENT AUTO 1 % (0-6); Hematocrit 44.9 % (33.0-51.0); Hemoglobin 14.6 g/dL (11.5-16.0); IMMATURE GRAN ABSOLUTE AUTO 0.05 K/mm3 (0.00-0.10); IMMATURE GRAN PERCENT AUTO 1 % (0-1); LYMPHOCYTES PERCENT AUTO 22 % (21-46); MONOCYTES ABSOLUTE AUTO 0.82 K/mm3 (0.16-1.47); MONOCYTES PERCENT AUTO 9 % (4-13); Mean Corpuscular HGB 32.9 pg (26.0-34.0); Mean Corpuscular HGB Conc 32.5 g/dL (31.5-36.5); Mean Corpuscular Volume 101 fL (80-100); Mean Platelet Volume 11.1 fL (9.1-12.4); NEUTROPHILS ABSOLUTE AUTO 5.93 K/mm3 (1.96-9.15); NEUTROPHILS PERCENT AUTO 66 % (41-73); Platelet Count 186 K/mm3 (150-400); RDW Coefficient Variation 13.6 % (11.7-14.2); RDW Standard Deviation 50.7 fL (35.1-46.3); Red Blood Cell Count 4.44 M/mm3 (3.80-5.20)
[2019-11-23 18:41] LABS: Alanine Aminotransfer (ALT/SGP 23 U/L (12-78); Albumin, Blood 3.4 g/dL (3.4-5.0); Albumin/Globulin Ratio 0.9 (0.8-1.8); Alk Phos 83 U/L (50-136); Anion Gap 7 mmol/L (6-16); Aspartate Aminotrans (AST/SGOT 20 U/L (12-37); Bilirubin, Total 0.3 mg/dL (0.1-1.0); Blood Urea Nitrogen 21 mg/dL (8-24); Bun/Creatinine Ratio 24.7 (12.0-20.0); CO2, Blood 28 mmol/L (21-32); Calcium, Blood 9.1 mg/dL (8.5-10.1); Chloride, Blood 104 mmol/L (98-108); Creatinine, Blood 0.85 mg/dL (0.40-1.00); Globulin, Blood 3.9 g/dL (2.2-4.0); Glomerular Filtration Rate >60 (60-); Glucose, Blood 112 mg/dL (70-99); Sodium, Blood 139 mmol/L (136-145); Total Protein, Blood 7.3 g/dL (6.4-8.2); Troponin I <0.015 ng/mL (0.000-0.040)
[2019-11-23 18:42] LABS: Valproic Acid 48.9 ug/mL (50.0-100.0)
== END 2019-11-23 19:45 | disposition home or self-care (01) ==
LOC: ER 17:15
PROVIDERS: Emergency Medicine
DX: I95.9 Hypotension, unspecified (principal); F03.90 Unspecified dementia, unspecified severity, without behavioral disturbance, psychotic disturbance, mood disturbance, and anxiety; K21.9 Gastro-esophageal reflux disease without esophagitis; Z87.891 Personal history of nicotine dependence; Z88.6 Allergy status to analgesic agent; Z79.82 Long term (current) use of aspirin; Z79.899 Other long term (current) drug therapy
CPT/HCPCS: 36415; 80053; 80164; 84484; 85025; 93005; 93010; 96360; 99284-25; J7030

== ENCOUNTER 2020-04-27 13:57 | Emergency (ER) | payer OTHER ==
[~2020-04-27] VITALS: Ht 160 cm; Wt 59.0 kg
[2020-04-27 14:21] LABS: BASOPHILS ABSOLUTE AUTO 0.05 K/mm3 (0.00-0.23); BASOPHILS PERCENT AUTO 1 % (0-2); EOSINOPHILS ABSOLUTE AUTO 0.09 K/mm3 (0.00-0.68); EOSINOPHILS PERCENT AUTO 1 % (0-6); Hematocrit 47.3 % (33.0-51.0); Hemoglobin 15.1 g/dL (11.5-16.0); IMMATURE GRAN ABSOLUTE AUTO 0.04 K/mm3 (0.00-0.10); IMMATURE GRAN PERCENT AUTO 1 % (0-1); LYMPHOCYTES ABSOLUTE AUTO 1.59 K/mm3 (0.84-5.20); LYMPHOCYTES PERCENT AUTO 19 % (21-46); MONOCYTES ABSOLUTE AUTO 0.55 K/mm3 (0.16-1.47); MONOCYTES PERCENT AUTO 7 % (4-13); Mean Corpuscular HGB 32.3 pg (26.0-34.0); Mean Corpuscular HGB Conc 31.9 g/dL (31.5-36.5); Mean Corpuscular Volume 101 fL (80-100); Mean Platelet Volume 11.6 fL (9.1-12.4); NEUTROPHILS ABSOLUTE AUTO 6.13 K/mm3 (1.96-9.15); NEUTROPHILS PERCENT AUTO 73 % (41-73); Platelet Count 201 K/mm3 (150-400); RDW Coefficient Variation 13.8 % (11.7-14.2); RDW Standard Deviation 51.8 fL (35.1-46.3); Red Blood Cell Count 4.67 M/mm3 (3.80-5.20); White Blood Cell Count 8.45 K/mm3 (4.00-11.30)
[2020-04-27 14:42] LABS: Albumin, Blood 3.5 g/dL (3.4-5.0); Albumin/Globulin Ratio 0.9 (0.8-1.8); Bilirubin, Total 0.4 mg/dL (0.1-1.0); Bun/Creatinine Ratio 13.2 (12.0-20.0); Creatinine, Blood 1.06 mg/dL (0.40-1.00); Globulin, Blood 4.1 g/dL (2.2-4.0); Potassium, Blood 4.2 mmol/L (3.5-5.5); Total Protein, Blood 7.6 g/dL (6.4-8.2)
== END 2020-04-27 16:43 | disposition home or self-care (01) ==
LOC: ER 13:57
PROVIDERS: Emergency Medicine
DX: F03.90 Unspecified dementia, unspecified severity, without behavioral disturbance, psychotic disturbance, mood disturbance, and anxiety (principal); E86.0 Dehydration; K21.9 Gastro-esophageal reflux disease without esophagitis; Z88.8 Allergy status to other drugs, medicaments and biological substances; Z79.52 Long term (current) use of systemic steroids; Z79.82 Long term (current) use of aspirin; Z87.820 Personal history of traumatic brain injury; Z79.899 Other long term (current) drug therapy
CPT/HCPCS: 36415; 80053; 85025; 93005; 93010; 99284-25

== ENCOUNTER → 2020-06-27 | Outpatient (CLI) | payer OTHER ==
[2020-06-28 17:14] LABS: Bilirubin, Urine Neg (Neg); Blood, Urine Neg (Neg); Glucose Qualitative, Urine Neg (Neg); Ketones, Urine Neg (Neg); Leukocyte Esterase, Urine 1+ (Neg); Nitrite, Urine Neg (Neg); Protein, Urine Neg (Neg); Specific Gravity, Urine 1.015 (1.003-1.022); Urobilinogen, Urine NORM (Normal)
[2020-06-28 17:20] LABS: Appearance, Urine Clear (Clear); Color, Urine Yellow (P-Yellow)
[2020-06-28 17:21] LABS: Bacteria Few /hpf; Red Blood Cells, Urine 0-2 /hpf (0-2); Squamous Epithelial Cells Rare /hpf (Few)
== END | disposition home or self-care (01) ==
LOC: LAB 14:54 → LAB SHORT 14:54
PROVIDERS: Nurse Practitioner Family
DX: N39.0 Urinary tract infection, site not specified (principal)
CPT/HCPCS: 81001; 87086

== ENCOUNTER 2020-08-15 08:29 | Emergency (ER) | payer OTHER ==
[~2020-08-15] VITALS: Ht 170.2 cm; Wt 83.9 kg
[2020-08-15] MEDS ORDERED: ASPI81CH PO (08:51)
[2020-08-15] MEDS ORDERED: ACET325 PO (08:51)
[2020-08-15] MEDS ORDERED: ZYRTEC10 M2 PO (08:52)
[2020-08-15] MEDS ORDERED: CENTRUM SILVER1 EAC2 PO (08:52)
[2020-08-15] MEDS ORDERED: CRANBERRY500 M1 PO (08:54)
[2020-08-15] MEDS ORDERED: FAMO20 PO (08:55)
[2020-08-15] MEDS ORDERED: DIVA500EC PO (08:55)
[2020-08-15] MEDS ORDERED: DOCU100 PO (08:56)
[2020-08-15] MEDS ORDERED: FERSU300 PO (08:57)
[2020-08-15] MEDS ORDERED: Flonase 0.05% N16 GM (08:58)
[2020-08-15] MEDS ORDERED: MELA3 PO (08:58)
[2020-08-15] MEDS ORDERED: MEMA10 PO (08:58)
[2020-08-15] MEDS ORDERED: FOLI1 PO (08:58)
[2020-08-15] MEDS ORDERED: MIDO5 PO (08:59)
[2020-08-15] MEDS ORDERED: METTREX2.5 PO (08:59)
[2020-08-15] MEDS ORDERED: METAMUCIL POWD575 GM (08:59)
[2020-08-15] MEDS ORDERED: QUET100 PO (09:00)
[2020-08-15] MEDS ORDERED: QUET200 PO (09:00)
[2020-08-15] MEDS ORDERED: NUEDEXTA 20-10 PO (09:00)
[2020-08-15] MEDS ORDERED: PRED1 PO (09:00)
[2020-08-15] MEDS ORDERED: VITAMIN D32000 UNI1 PO (09:01)
[2020-08-15 09:03] LABS: BASOPHILS ABSOLUTE AUTO 0.08 K/mm3 (0.00-0.23); BASOPHILS PERCENT AUTO 1 % (0-2); EOSINOPHILS ABSOLUTE AUTO 0.28 K/mm3 (0.00-0.68); EOSINOPHILS PERCENT AUTO 3 % (0-6); Hematocrit 42.2 % (33.0-51.0); Hemoglobin 13.3 g/dL (11.5-16.0); IMMATURE GRAN ABSOLUTE AUTO 0.04 K/mm3 (0.00-0.10); IMMATURE GRAN PERCENT AUTO 1 % (0-1); LYMPHOCYTES PERCENT AUTO 26 % (21-46); MONOCYTES ABSOLUTE AUTO 0.83 K/mm3 (0.16-1.47); MONOCYTES PERCENT AUTO 10 % (4-13); Mean Corpuscular HGB 32.8 pg (26.0-34.0); Mean Corpuscular HGB Conc 31.5 g/dL (31.5-36.5); Mean Corpuscular Volume 104 fL (80-100); Mean Platelet Volume 11.5 fL (9.1-12.4); NEUTROPHILS ABSOLUTE AUTO 5.01 K/mm3 (1.96-9.15); NEUTROPHILS PERCENT AUTO 59 % (41-73); Platelet Count 170 K/mm3 (150-400); RDW Standard Deviation 53.2 fL (35.1-46.3); Red Blood Cell Count 4.05 M/mm3 (3.80-5.20); White Blood Cell Count 8.44 K/mm3 (4.00-11.30)
[2020-08-15 09:19] LABS: Alanine Aminotransfer (ALT/SGP 25 U/L (12-78); Albumin, Blood 2.9 g/dL (3.4-5.0); Albumin/Globulin Ratio 0.8 (0.8-1.8); Alk Phos 73 U/L (50-136); Anion Gap 5 mmol/L (6-16); Aspartate Aminotrans (AST/SGOT 28 U/L (12-37); Bilirubin, Total 0.4 mg/dL (0.1-1.0); Blood Urea Nitrogen 12 mg/dL (8-24); Bun/Creatinine Ratio 11.8 (12.0-20.0); CO2, Blood 28 mmol/L (21-32); Calcium, Blood 8.8 mg/dL (8.5-10.1); Chloride, Blood 111 mmol/L (98-108); Creatinine, Blood 1.02 mg/dL (0.40-1.00); Globulin, Blood 3.5 g/dL (2.2-4.0); Glomerular Filtration Rate 56 (60-); Glucose, Blood 94 mg/dL (70-99); Potassium, Blood 4.2 mmol/L (3.5-5.5); Sodium, Blood 144 mmol/L (136-145); Total Protein, Blood 6.4 g/dL (6.4-8.2); Troponin I <0.015 ng/mL (0.000-0.040)
[2020-08-15 09:49] LABS: Source, Urine Clean Catch
[2020-08-15 09:51] LABS: Bilirubin, Urine Neg (Neg); Blood, Urine Neg (Neg); Glucose Qualitative, Urine Neg (Neg); Ketones, Urine Neg (Neg); Leukocyte Esterase, Urine Neg (Neg); Nitrite, Urine Neg (Neg); Protein, Urine Neg (Neg); Urobilinogen, Urine NORM (Normal)
[2020-08-15 09:56] LABS: Appearance, Urine Clear (Clear); Color, Urine Yellow (P-Yellow)
== END 2020-08-15 12:08 | disposition home or self-care (01) ==
LOC: ER 08:29
PROVIDERS: Emergency Medicine; Physician Assistant
DX: R55 Syncope and collapse (principal); E86.1 Hypovolemia; K21.9 Gastro-esophageal reflux disease without esophagitis; F03.90 Unspecified dementia, unspecified severity, without behavioral disturbance, psychotic disturbance, mood disturbance, and anxiety; Z79.82 Long term (current) use of aspirin; Z79.899 Other long term (current) drug therapy; Z79.52 Long term (current) use of systemic steroids; Z87.891 Personal history of nicotine dependence
CPT/HCPCS: 70450; 71045; 80053; 81003; 84484; 85025; 93005; 93010; 99285-25; J7030; P9612

== ENCOUNTER → 2020-08-24 | Outpatient (CLI) | payer OTHER ==
[~2020-08-24] MED LIST changes: +ACET325 PO; +Aspir 8181 MG PO; +BISA5EC PO; +CENTRUM SILVER1 EAC2 PO; +CRANBERRY500 M1 PO; +Cetirizine HCl10 MG PO; +DIVA500EC PO; +FAMO20 PO; +FERSU300 PO; +Flonase 0.05% N16 GM; +GABA100 PO; +METAMUCIL POWD575 GM; +MIDO5 PO; +MIDODRINE HCL10 M4 PO; +NUEDEXTA 20-10 PO; +NUEDEXTA PO; +Neurontin 100100 MG PO; +QUETIAPINE FUM PO; +QUETIAPINE FUM200 M6 PO; +VITAMIN D31000 UNI1 PO; +VITAMIN D32000 UNI1 PO; +ZYRTEC10 M2 PO
[2020-08-24 16:54] LABS: Appearance, Urine Clear (Clear); Bilirubin, Urine Neg (Neg); Blood, Urine Neg (Neg); Color, Urine Yellow (P-Yellow); Glucose Qualitative, Urine Neg (Neg); Ketones, Urine 1+ (Neg); Leukocyte Esterase, Urine Neg (Neg); Nitrite, Urine Neg (Neg); Protein, Urine Neg (Neg); Specific Gravity, Urine 1.015 (1.003-1.022); Urobilinogen, Urine NORM (Normal); pH, Urine 6.5 (5.0-8.0)
== END | disposition home or self-care (01) ==
LOC: LAB SHORT 14:14 → LAB 14:14
PROVIDERS: Nurse Practitioner Family
DX: N39.0 Urinary tract infection, site not specified (principal)
CPT/HCPCS: 81003; 87086

== ENCOUNTER 2020-11-27 17:12 | Emergency (ER) | payer OTHER ==
[~2020-11-27] VITALS: Ht 165.1 cm; Wt 61.2 kg
[~2020-11-27 17:12] MED LIST changes: -BISA5EC PO; -Cetirizine HCl10 MG PO; -GABA100 PO; -MIDODRINE HCL10 M4 PO; -NUEDEXTA PO; -Neurontin 100100 MG PO; -QUETIAPINE FUM PO; -QUETIAPINE FUM200 M6 PO; -VITAMIN D31000 UNI1 PO
[2020-11-27 18:24] LABS: Source, Urine Clean Catch
[2020-11-27 18:31] LABS: BASOPHILS ABSOLUTE AUTO 0.07 K/mm3 (0.00-0.23); BASOPHILS PERCENT AUTO 1 % (0-2); EOSINOPHILS ABSOLUTE AUTO 0.15 K/mm3 (0.00-0.68); EOSINOPHILS PERCENT AUTO 2 % (0-6); Hematocrit 38.4 % (33.0-51.0); Hemoglobin 12.5 g/dL (11.5-16.0); IMMATURE GRAN ABSOLUTE AUTO 0.06 K/mm3 (0.00-0.10); IMMATURE GRAN PERCENT AUTO 1 % (0-1); LYMPHOCYTES ABSOLUTE AUTO 1.75 K/mm3 (0.84-5.20); LYMPHOCYTES PERCENT AUTO 19 % (21-46); MONOCYTES ABSOLUTE AUTO 1.17 K/mm3 (0.16-1.47); MONOCYTES PERCENT AUTO 13 % (4-13); Mean Corpuscular HGB 32.6 pg (26.0-34.0); Mean Corpuscular HGB Conc 32.6 g/dL (31.5-36.5); Mean Corpuscular Volume 100 fL (80-100); Mean Platelet Volume 11.5 fL (9.1-12.4); NEUTROPHILS ABSOLUTE AUTO 6.15 K/mm3 (1.96-9.15); NEUTROPHILS PERCENT AUTO 66 % (41-73); Platelet Count 193 K/mm3 (150-400); RDW Coefficient Variation 14.6 % (11.7-14.2); RDW Standard Deviation 53.8 fL (35.1-46.3); Red Blood Cell Count 3.83 M/mm3 (3.80-5.20); White Blood Cell Count 9.35 K/mm3 (4.00-11.30)
[2020-11-27 18:37] LABS: Appearance, Urine Clear (Clear); Bilirubin, Urine Neg (Neg); Blood, Urine Neg (Neg); Color, Urine Yellow (P-Yellow); Glucose Qualitative, Urine Neg (Neg); Ketones, Urine 1+ (Neg); Leukocyte Esterase, Urine Neg (Neg); Nitrite, Urine Neg (Neg); Protein, Urine 2+ (Neg); Specific Gravity, Urine 1.025 (1.003-1.022); Urobilinogen, Urine NORM (Normal)
[2020-11-27 18:46] LABS: Amorphous Light (0-Heavy); Bacteria Rare /hpf; Granular Casts 0-2 /lpf (0); Hyaline Casts 25-50 /lpf (0-2); Mucus Light (0-Heavy); Red Blood Cells, Urine Not Seen /hpf (0-2); Squamous Epithelial Cells Not Seen /hpf (Few); White Blood Cells, Urine Not Seen /hpf (0-5)
[2020-11-27 18:56] LABS: Alanine Aminotransfer (ALT/SGP 22 U/L (12-78); Albumin, Blood 2.9 g/dL (3.4-5.0); Albumin/Globulin Ratio 0.8 (0.8-1.8); Alk Phos 79 U/L (50-136); Anion Gap 5 mmol/L (6-16); Aspartate Aminotrans (AST/SGOT 24 U/L (12-37); Bilirubin, Total 0.3 mg/dL (0.1-1.0); Blood Urea Nitrogen 16 mg/dL (8-24); Bun/Creatinine Ratio 17.9 (12.0-20.0); CO2, Blood 25 mmol/L (21-32); Calcium, Blood 8.5 mg/dL (8.5-10.1); Chloride, Blood 111 mmol/L (98-108); Globulin, Blood 3.5 g/dL (2.2-4.0); Glomerular Filtration Rate >60 (60-); Glucose, Blood 100 mg/dL (70-99); Potassium, Blood 4.5 mmol/L (3.5-5.5); Sodium, Blood 141 mmol/L (136-145); Total Protein, Blood 6.4 g/dL (6.4-8.2); Troponin I <0.015 ng/mL (0.000-0.040)
== END 2020-11-27 22:45 | disposition home or self-care (01) ==
LOC: ER 17:12
PROVIDERS: Physician Assistant
DX: R53.1 Weakness (principal); K21.9 Gastro-esophageal reflux disease without esophagitis; Z88.5 Allergy status to narcotic agent; Z79.82 Long term (current) use of aspirin; Z79.899 Other long term (current) drug therapy; Z79.52 Long term (current) use of systemic steroids; Z87.891 Personal history of nicotine dependence
CPT/HCPCS: 36415; 51701; 70450; 71045; 80053; 81001; 84484; 85025; 93005; 93010; 99284-25; J7030

== ENCOUNTER → 2021-03-13 | Outpatient (CLI) | payer OTHER ==
[~2021-03-13] MED LIST changes: +BISA5EC PO; +Cetirizine HCl10 MG PO; +GABA100 PO; +MIDODRINE HCL10 M4 PO; +NUEDEXTA PO; +Neurontin 100100 MG PO; +QUETIAPINE FUM PO; +QUETIAPINE FUM200 M6 PO; +VITAMIN D31000 UNI1 PO
== END ==
LOC: LAB 12:54 → LAB SHORT 12:54
DX: R82.90 Unspecified abnormal findings in urine (principal)
CPT/HCPCS: 87086

== ENCOUNTER 2021-03-14 10:27 | Inpatient (IN) | payer MEDICARE, OTHER ==
[~2021-03-14] VITALS: Ht 157.5 cm; Wt 70.0 kg
[~2021-03-14 10:27] MED LIST changes: -BISA5EC PO; -Cetirizine HCl10 MG PO; -GABA100 PO; -MIDODRINE HCL10 M4 PO; -NUEDEXTA PO; -Neurontin 100100 MG PO; -QUETIAPINE FUM PO; -QUETIAPINE FUM200 M6 PO; -VITAMIN D31000 UNI1 PO
[2021-03-14] MEDS ORDERED: GABA100 PO (10:56)
[2021-03-14] MEDS ORDERED: BISA5EC PO ×2 (11:01→14:03)
[2021-03-14 11:26] LABS: BASOPHILS ABSOLUTE AUTO 0.03 K/mm3 (0.00-0.23); BASOPHILS PERCENT AUTO 0 % (0-2); EOSINOPHILS ABSOLUTE AUTO 0.13 K/mm3 (0.00-0.68); EOSINOPHILS PERCENT AUTO 2 % (0-6); Hematocrit 45.8 % (33.0-51.0); Hemoglobin 14.7 g/dL (11.5-16.0); IMMATURE GRAN ABSOLUTE AUTO 0.02 K/mm3 (0.00-0.10); IMMATURE GRAN PERCENT AUTO 0 % (0-1); LYMPHOCYTES ABSOLUTE AUTO 0.34 K/mm3 (0.84-5.20); LYMPHOCYTES PERCENT AUTO 4 % (21-46); MONOCYTES ABSOLUTE AUTO 0.57 K/mm3 (0.16-1.47); MONOCYTES PERCENT AUTO 6 % (4-13); Mean Corpuscular HGB 32.9 pg (26.0-34.0); Mean Corpuscular HGB Conc 32.1 g/dL (31.5-36.5); Mean Corpuscular Volume 103 fL (80-100); Mean Platelet Volume 11.9 fL (9.1-12.4); NEUTROPHILS ABSOLUTE AUTO 7.82 K/mm3 (1.96-9.15); NEUTROPHILS PERCENT AUTO 88 % (41-73); Platelet Count 170 K/mm3 (150-400); RDW Coefficient Variation 14.6 % (11.7-14.2); RDW Standard Deviation 54.4 fL (35.1-46.3); Red Blood Cell Count 4.47 M/mm3 (3.80-5.20); White Blood Cell Count 8.91 K/mm3 (4.00-11.30)
[2021-03-14 11:37] LABS: Albumin, Blood 3.1 g/dL (3.4-5.0); Albumin/Globulin Ratio 0.7 (0.8-1.8); Bilirubin, Total 0.4 mg/dL (0.1-1.0); Bun/Creatinine Ratio 14.9 (12.0-20.0); Calcium, Blood 8.8 mg/dL (8.5-10.1); Creatinine, Blood 1.01 mg/dL (0.40-1.00); Globulin, Blood 4.2 g/dL (2.2-4.0); Potassium, Blood 4.1 mmol/L (3.5-5.5); Total Protein, Blood 7.3 g/dL (6.4-8.2)
[2021-03-14 12:14] LABS: Source, Urine Catheter
[2021-03-14 12:17] LABS: Appearance, Urine Hazy (Clear); Bilirubin, Urine Neg (Neg); Blood, Urine Neg (Neg); Color, Urine Yellow (P-Yellow); Glucose Qualitative, Urine Neg (Neg); Ketones, Urine 1+ (Neg); Leukocyte Esterase, Urine 1+ (Neg); Nitrite, Urine Neg (Neg); Protein, Urine 1+ (Neg); Urobilinogen, Urine NORM (Normal)
[2021-03-14 12:45] LABS: Amorphous Mod (0-Heavy)
[2021-03-14 12:46] LABS: Bacteria Few /hpf
[2021-03-14 12:47] LABS: Red Blood Cells, Urine Not Seen /hpf (0-2); Squamous Epithelial Cells Rare /hpf (Few)
--- NOTE | 2021-03-14 12:47 | NUR ---
Upon receiving a request for spiritual care by patient's daughter, Danni, I visit patient in ER-19. Patient is confused and struggles to keep her eyes open. Danni tells me her fears about what might be happening with her mother and asks me to provide prayer. I provide therapeutic listening and prayer. Danni voices appreciation for the visit and the prayer. I will continue to remain available to patient and family .
[2021-03-14] MEDS ORDERED: MIDODRINE HCL10 M4 PO (13:29)
[2021-03-14] MEDS ORDERED: NUEDEXTA PO (13:35)
[2021-03-14] MEDS ORDERED: QUETIAPINE FUM200 M6 PO (13:35)
[2021-03-14] MEDS ORDERED: QUETIAPINE FUM PO (13:35)
[2021-03-14] MEDS ORDERED: PRED1 PO (13:36)
[2021-03-14] MEDS ORDERED: FAMO20 PO (13:36)
[2021-03-14] MEDS ORDERED: Cetirizine HCl10 MG PO (13:36)
[2021-03-14] MEDS ORDERED: VITAMIN D31000 UNI1 PO (14:04)
[2021-03-14 15:50] LABS: Valproic Acid 63.5 ug/mL (50.0-100.0)
--- NOTE | 2021-03-14 18:08 | NUR ---
PT ARRIVED TO THE MEDICAL FLOOR FROM THE ER AT 1600 VIA GURNEY, THE PT WAS SLIDE OVER TO THE BED. PT WAS APPEARS TREMULOUS/ANXIOUS. PT IS CONFUSED OPENS HER EYES TO VERBAL STIMULI, ANSWERS SOME YES AND NO QUESTIONS AND SPEAKS NONSENSICALLY AT TIMES. O2 WAS APPLIED FOR O2 SAT'S IN THE MID 80'S AT 2L/MIN AT THIS TIME, PT WAS ORIENTED TO THE CALL SYSTEM AND CALL LIGHT PLACED WITHIN REACH, BED ALARM ON FOR SAFETY. CALL LIGHT IN REACH, WILL CONTINUE TO MONITOR AND ASSESS FOR CHANGES
[2021-03-14] MEDS ORDERED: Neurontin 100100 MG PO (20:38)
[2021-03-14] MEDS ORDERED: NITR100CA PO (20:39)
[2021-03-15 02:35] LABS: BASOPHILS ABSOLUTE AUTO 0.05 K/mm3 (0.00-0.23); BASOPHILS PERCENT AUTO 1 % (0-2); EOSINOPHILS ABSOLUTE AUTO 0.01 K/mm3 (0.00-0.68); EOSINOPHILS PERCENT AUTO 0 % (0-6); Hematocrit 38.6 % (33.0-51.0); Hemoglobin 12.3 g/dL (11.5-16.0); IMMATURE GRAN ABSOLUTE AUTO 0.05 K/mm3 (0.00-0.10); IMMATURE GRAN PERCENT AUTO 1 % (0-1); LYMPHOCYTES ABSOLUTE AUTO 1.43 K/mm3 (0.84-5.20); LYMPHOCYTES PERCENT AUTO 17 % (21-46); MONOCYTES ABSOLUTE AUTO 0.88 K/mm3 (0.16-1.47); MONOCYTES PERCENT AUTO 11 % (4-13); Mean Corpuscular HGB 32.8 pg (26.0-34.0); Mean Corpuscular HGB Conc 31.9 g/dL (31.5-36.5); Mean Corpuscular Volume 103 fL (80-100); Mean Platelet Volume 11.7 fL (9.1-12.4); NEUTROPHILS ABSOLUTE AUTO 5.81 K/mm3 (1.96-9.15); NEUTROPHILS PERCENT AUTO 71 % (41-73); Platelet Count 151 K/mm3 (150-400); RDW Coefficient Variation 14.6 % (11.7-14.2); RDW Standard Deviation 54.5 fL (35.1-46.3); Red Blood Cell Count 3.75 M/mm3 (3.80-5.20); White Blood Cell Count 8.23 K/mm3 (4.00-11.30)
--- NOTE | 2021-03-15 03:29 | NUR ---
BLACK EMESIS AND DARK GREEN STOOL AT AROUND 0230 PT WAS FOUND TO HAVE A LARGE AMOUNT OF BLACK COFFEE GROUND TEXTURED EMESIS, APPEARS COAGULATED. PT ALSO HAD A LARGE DARK GREEN LIQUID STOOL. PT HAD 3 LIQUID DARK GREEN STOOLS WITHIN 1 HOUR PERIOD. VITALS TAKEN, LABS DRAWN PT REMAINS HYPOTENSIVE WHICH IS PT'S BASELINE. PT REMAINS ORIENTED X0. PT IS ALERT BUT UNABLE TO EXPRESS CONCERNS OR NEEDS. NON-SENSICAL SPEECH. SKIN IS COOL TO TOUCH. FULL BED CHANGED, WARM BLANKET PROVIDED, TOMASA CARE PROVIDED, ORAL CARE GIVEN. HOSPITALIST DR. [facility] NOTIFIED OF THIS. GUAIC STOOL SAMPLE ORDERED, REPEAT H&H IN 4 HOURS, INCREASE NS TO 150ML/HR AND PROTONIX 80 MG IV TWICE A DAY STARTING NOW ORDERED. BED ALARM ON, CALL LIGHT WITHIN REACH, WILL CONTINUE TO MONITOR.
[2021-03-15 03:38] LABS: Magnesium, Blood 2.1 mg/dL (1.6-2.4)
[2021-03-15 03:47] LABS: Alanine Aminotransfer (ALT/SGP 23 U/L (12-78); Albumin, Blood 2.5 g/dL (3.4-5.0); Albumin/Globulin Ratio 0.7 (0.8-1.8); Alk Phos 69 U/L (50-136); Anion Gap 7 mmol/L (6-16); Aspartate Aminotrans (AST/SGOT 28 U/L (12-37); Bilirubin, Total 0.4 mg/dL (0.1-1.0); Blood Urea Nitrogen 12 mg/dL (8-24); Bun/Creatinine Ratio 14.7 (12.0-20.0); CO2, Blood 25 mmol/L (21-32); Calcium, Blood 7.7 mg/dL (8.5-10.1); Chloride, Blood 112 mmol/L (98-108); Creatinine, Blood 0.82 mg/dL (0.40-1.00); Globulin, Blood 3.4 g/dL (2.2-4.0); Glomerular Filtration Rate >60 (60-); Glucose, Blood 88 mg/dL (70-99); Potassium, Blood 3.7 mmol/L (3.5-5.5); Sodium, Blood 144 mmol/L (136-145); Total Protein, Blood 5.9 g/dL (6.4-8.2)
[2021-03-15 05:51] LABS: Stool Occult Blood Guaiac 1 Pos (Neg)
--- NOTE | 2021-03-15 06:38 | NUR ---
LANGUAGE AND LITERATURE DIVISION CHAIR SUMMARY PT IS A/O X0. SLEPT WELL TONIGHT. PT IS STILL HAVING MULTIPLE DARK GREEN LIQID BM'S. NO MORE EMESIS TONIGHT OTHER THAN THE ONE AROUND 0230. PT UNABLE TO MAKE NEEDS KNOWN. HOB AT 90 DEGREES TO PREVENT ASPIRATION. GI CONSULT IN PLACE FOR TODAY. PT CURRENTLY ASLEEP. TELE BEEN RUNNING SR IN THE 'S. ATTEMPTED TO CALL AND UPDATE DAUGHTER, HOWEVER NUMBER LISTED IN CHART IS FOR [facility]. PRESTON PATENT AND DRAINING LIGHT URINE TO GRAVITY. CALL LIGHT WITHIN REACH, BED ALARM, WILL GIVE REPORT TO ONCOMING RN.
[2021-03-15 07:15] LABS: Hematocrit 34.5 % (33.0-51.0)
--- NOTE | 2021-03-15 12:49 | NUR ---
Pt admitted to hospital for Metabolic Encephalopothy. Pt medical history and comorbidities include: Alzheimer's Dementia, Rheumatoid Arthritis, Hypotension, TBI, TIA, Iron Defecient Anemia, and GERD. Spoke with caregiver Kimberly at [facility]. Pt's baseline is significant confusion, poor appetite, needs assistance with ambulation, transfers, bathing, and dressing. Pt's strength has significantly decreased and can not tolerate ambulation very far. Pt spends most of her day chair bound. Pt does experience intermittent incontinence. Pt resting in bed with her eyes closed upon arrival. Pt does open her eyes occasionaly throughout visit but does not engage in conversation. Pt appears comfortable with no S/S of distress at this time. Pt's daughter Danni is at bedside. Listened as Danni reports having 2 brothers who have not been apart of Pt's life for 5 1/2 years. Engaged in therapeutic discussion regarding disease process and educated on trajectory of disease. Discussed hospice as an option and educated on hospice philosophy with V/U made by Danni. Danni reports Pt would want to avoid hospitalization and focus on comfort at this stage in her life. Danni expresses interest in hospice and would like to pursue hospice services once Pt is medicaly stable for D/C. Discussed hospice agencies to choose from with Danni choosing [facility]. Engaged in therapeutic discussion regarding Pt's wishes for CPR and Intubation. Danni reports at this stage in Pt's life she would not want to be rescusitated. Danni is agreeable to change Pt's code status to DNR. Continued therapeutic listening and answered questions. Spoke with Dr Narayanan and discussed case. Changed Pt's code status to DNR per V/O from Dr Narayanan. Palliative Care will complete POLST with daughter for Pt prior to Pt D/C.
--- NOTE | 2021-03-15 13:17 | NUR ---
Late Entry from previous visit. PPS 40% ADLs 5/6 FAST 7C Albumin 2.5
--- NOTE | 2021-03-15 14:46 | NUR ---
Spiritual care visit conducted. Patient's daughter, Danni is bedside and tearful. She discusses family unit complications, her keyona and her desire to not have her mother suffer. I listen empathically and provide pastoral prison classification counselor and prayer as well as encourage self-care. Danni responds well and voices appreciation for the visit.
[2021-03-15 15:13] LABS: Hemoglobin 11.2 g/dL (11.5-16.0)
--- NOTE | 2021-03-15 17:28 | NUR ---
FOLLOW UP ON GI CONSULT PHONE CALL TO DR. SUH's OFFICE TO FOLLOW UP ON GI CONSULT AND SPOKE TO TREE. WILL CONTINUE TO WAIT FOR DR. SUH FOR GI CONSULT.
--- NOTE | 2021-03-15 18:49 | NUR ---
SHIFT SUMMARY PT AAO TO SELF, PLEASANTLY CONFUSED, REDIRECTABLE. VERY SOFT VOICE. ABLE TO RESPOND TO YES/NO QUESTIONS. PT MEDICATED FOR SIGNS OF PAIN PER EMAR. CONTINUES ON 2LPM O2 VIA NC, SATS >92%. PT NOTED TO HAVE 1 LARGE DARK GREEN LOOSE STOOL THIS SHIFT. NO C/O N&V OR ANY OTHER ABDOMINAL DISCOMFORT NOTED. PT REQUIRES 2P MAX ASSIST FOR BED MOBILITY. PT HAD A GI CONSULT WITH DR. SUH THIS SHIFT. BED AT LOWEST POSITION. CALL LIGHT WITHIN REACH.
[2021-03-15 21:03] LABS: Hemoglobin 11.8 g/dL (11.5-16.0)
--- NOTE | 2021-03-16 04:28 | NUR ---
PROCEDURES ANALYST SUMMARY PT AIS A/O X1 TO SELF. APPEARS MORE ALERT AND ABLE TO ANSWER YES OR NO QUESTIONS. PT CONTINES TO BE CONFUSED, TRIED TO EXIT THE BED ONCE TONIGHT. NO BOWEL MOVEMENTS SO FAR TONIGHT. ABLE TO TAKE MEDS CRUSHED IN APPLE SAUCE. SLEPT OFF AND ON TONIGHT. BED ALARM ON, CALL LIGHT WITHIN REACH, WILL CONTINUE TO MONITOR.
[2021-03-16 05:05] LABS: Hemoglobin 10.5 g/dL (11.5-16.0)
[2021-03-16 11:55] LABS: SARS-Cov-2 (COVID-19) PCR, MMC NEGATIVE (NEGATIVE)
--- NOTE | 2021-03-16 13:27 | NUR ---
03/16/21 1327 Sue Cheney History, Chart, Medications and Allergies reviewed before start of procedure.Patient confirms NPO status and agrees with scheduled surgery.3-LEAD EKG REVIEWED WITH PHYSICIAN PRIOR TO START OF PROCEDURE.MONITOR INTACT WITH CONTINUOUS PULSE OXIMETRY AND INTERMITTENT BP.O2 VIA N/C INTACT THROUGHOUT SEDATION/PROCEDURE. PATIENT DETERMINED TO BE ASA APPROPRIATE FOR PROPOFOL SEDATION PRIOR TO START OF PROCEDURE BY DR. SUH
--- NOTE | 2021-03-16 14:29 | NUR ---
PT TRANSPORTED BACK TO ROOM FROM DAY SURGERY BY JESSE BELLAMY. RECEIVED REPORT FROM JESSE BELLAMY. PT AAO TO SELF AND FAMILY, PLEASANTLY CONFUSED. VSS. NO C/O PAIN OR ANY DISCOMFORT. PT UP IN CHAIR W/ ALARM ON. VISITING WITH FAMILY. CALL LIGHT WITHIN REACH.
--- NOTE | 2021-03-16 18:32 | NUR ---
SHIFT SUMMARY PT AAO TO SELF AND FAMILY. PLEASANTLY CONFUSED, REDIRECTABLE. NO C/O PAIN OR ANY DISCOMFORT. NO C/O CP, SOB, OR N&V. RESPS E/U IN RA. NO EPISODES OF ANY DARK COLORED STOOLS THIS SHIFT. PT REFUSE BOWEL CARE THIS SHIFT. PT HAD SCHEDULED EGD TODAY. THIS AFTERNOON PT APPEARS MORE ACTIVE, MULTIPLE ATTEMPTS TO BED EXIT AND DISROBING. PT REQUIRES 1P ASSIST W/ FWW AND GB FOR TRANSFERS. PT WORKED WITH PT AND OT THIS SHIFT. BED AT LOWEST POSITION W/ ALARM ON FOR SAFETY. CALL LIGHT WITHIN REACH.
--- NOTE | 2021-03-17 05:13 | NUR ---
SHIFT SUMMARAY NO ACUTE CHANGES THIS SHIFT, A&O TO SELF, ATTEMPTING TO GET OUT OF BED SEVERAL TIMES T/O SHIFT, BEDRESTING AT THIS TIME, CALL LIGHT IN REACH, WILL CONT TO MONITOR UNTIL REPORT GIVEN TO DAY RN.
[2021-03-17] MEDS ORDERED: PANT40 PO (12:39)
--- NOTE | 2021-03-17 16:00 | NUR ---
PT DISCHARGED 1445 TO [facility], DAUGHTER TO TRANSPORT. W/C OUT TO CAR. PT AMBULATES SBA 2PERSON WITH GAIT BELT, SLOW WITH ADQ STRENGTH. DC INSTRUCTIONS GIVEN TO NOAM. ALSO CALLED REPORT TO [facility] AND FAXED DC ORDERS AND MEDS WITH SIGNATURE. NEW RX FOR OMEPRAZONE. CALLED TO CONFIRM SHE DOESN'T WANT ANTIBIOTICS CONTINUED, COMPLETED COURSE AT HOSP.
== END 2021-03-17 14:46 | disposition home or self-care (01) | DRG 92 ==
LOC: ER 10:27 → MEDS 14:08
PROVIDERS: Emergency Medicine; Internal Medicine; Nurse Practitioner Acute Care; Student in an Organized Health Care Education/Training Program; ADMIT Family Medicine
PROC: 0DB48ZX Excision of Esophagogastric Junction, Via Natural or Artificial Opening Endoscopic, Diagnostic (ICD-10-PCS; principal; 2021-03-16 12:30)
DX: G92 Toxic encephalopathy (principal); K92.0 Hematemesis; N39.0 Urinary tract infection, site not specified; K21.9 Gastro-esophageal reflux disease without esophagitis; G89.29 Other chronic pain; Z96.642 Presence of left artificial hip joint; Z20.822 Contact with and (suspected) exposure to COVID-19; Z66 Do not resuscitate; R45.1 Restlessness and agitation; Z96.652 Presence of left artificial knee joint; I95.89 Other hypotension; G30.9 Alzheimer's disease, unspecified; F02.80 Dementia in other diseases classified elsewhere, unspecified severity, without behavioral disturbance, psychotic disturbance, mood disturbance, and anxiety; K44.9 Diaphragmatic hernia without obstruction or gangrene; M06.9 Rheumatoid arthritis, unspecified; D50.9 Iron deficiency anemia, unspecified; M25.519 Pain in unspecified shoulder; Z87.820 Personal history of traumatic brain injury; Z88.8 Allergy status to other drugs, medicaments and biological substances; Z90.49 Acquired absence of other specified parts of digestive tract; Z90.710 Acquired absence of both cervix and uterus; Z87.891 Personal history of nicotine dependence; Z87.11 Personal history of peptic ulcer disease; Z79.899 Other long term (current) drug therapy; Z79.51 Long term (current) use of inhaled steroids; Z79.52 Long term (current) use of systemic steroids
CPT/HCPCS: 36415; 51702; 70450; 71045; 80053; 80164; 81001; 82272; 83605; 83735; 84145; 85014; 85018; 85025; 87040; 87086; 88305; 93005; 93010; 94760; 96365-59; 97110; 97162; 97166; 97530; 99285-25; A9270; C9113; J0696; J1650; J2704; J7030; J7120; J7512; U0004

== ENCOUNTER → 2021-04-21 | Outpatient (CLI) | payer OTHER ==
[~2021-04-21] MED LIST changes: +BISA5EC PO; +Cetirizine HCl10 MG PO; +GABA100 PO; +MIDODRINE HCL10 M4 PO; +NUEDEXTA PO; +Neurontin 100100 MG PO; +QUETIAPINE FUM PO; +QUETIAPINE FUM200 M6 PO; +VITAMIN D31000 UNI1 PO
== END | disposition home or self-care (01) ==
LOC: LAB 09:15 → LAB SHORT 09:15
DX: Z20.822 Contact with and (suspected) exposure to COVID-19 (principal)
CPT/HCPCS: U0003

== ENCOUNTER → 2021-04-27 | Outpatient (CLI) | payer OTHER | LOC: LAB SHORT 12:46 → LAB 12:46 | DX: Z03.818 Encounter for observation for suspected exposure to other biological agents ruled out (principal) | CPT/HCPCS: U0003 ==

== ENCOUNTER → 2021-05-22 | Outpatient (CLI) | payer OTHER ==
[2021-05-24 15:52] LABS: CORONAVIRUS (COVID19) CSH-NRL Negative (Negative)
== END | disposition home or self-care (01) ==
LOC: LAB SHORT 10:44
PROVIDERS: Physician Assistant Medical
DX: M19.90 Unspecified osteoarthritis, unspecified site (principal); F32.9 Major depressive disorder, single episode, unspecified; G30.9 Alzheimer's disease, unspecified; F02.80 Dementia in other diseases classified elsewhere, unspecified severity, without behavioral disturbance, psychotic disturbance, mood disturbance, and anxiety; R44.3 Hallucinations, unspecified; R42 Dizziness and giddiness; R55 Syncope and collapse
CPT/HCPCS: U0003

== ENCOUNTER → 2021-05-24 | Outpatient (CLI) | payer OTHER ==
[2021-05-24 14:57] LABS: BASOPHILS ABSOLUTE AUTO 0.08 K/mm3 (0.00-0.23); BASOPHILS PERCENT AUTO 1 % (0-2); EOSINOPHILS ABSOLUTE AUTO 0.26 K/mm3 (0.00-0.68); EOSINOPHILS PERCENT AUTO 3 % (0-6); Hematocrit 42.1 % (33.0-51.0); Hemoglobin 13.2 g/dL (11.5-16.0); IMMATURE GRAN ABSOLUTE AUTO 0.02 K/mm3 (0.00-0.10); IMMATURE GRAN PERCENT AUTO 0 % (0-1); LYMPHOCYTES ABSOLUTE AUTO 2.19 K/mm3 (0.84-5.20); LYMPHOCYTES PERCENT AUTO 27 % (21-46); MONOCYTES ABSOLUTE AUTO 1.04 K/mm3 (0.16-1.47); MONOCYTES PERCENT AUTO 13 % (4-13); Mean Corpuscular HGB 31.6 pg (26.0-34.0); Mean Corpuscular HGB Conc 31.4 g/dL (31.5-36.5); Mean Corpuscular Volume 101 fL (80-100); NEUTROPHILS ABSOLUTE AUTO 4.46 K/mm3 (1.96-9.15); NEUTROPHILS PERCENT AUTO 56 % (41-73); Platelet Count 216 K/mm3 (150-400); RDW Standard Deviation 55.6 fL (35.1-46.3); Red Blood Cell Count 4.18 M/mm3 (3.80-5.20); White Blood Cell Count 8.05 K/mm3 (4.00-11.30)
[2021-05-24 15:10] LABS: Alanine Aminotransfer (ALT/SGP 22 U/L (12-78); Albumin, Blood 3.4 g/dL (3.4-5.0); Albumin/Globulin Ratio 0.8 (0.8-1.8); Alk Phos 84 U/L (50-136); Anion Gap 6 mmol/L (6-16); Aspartate Aminotrans (AST/SGOT 12 U/L (12-37); Bilirubin, Total 0.4 mg/dL (0.1-1.0); Blood Urea Nitrogen 10 mg/dL (8-24); Bun/Creatinine Ratio 12.7 (12.0-20.0); CO2, Blood 28 mmol/L (21-32); Calcium, Blood 9.1 mg/dL (8.5-10.1); Chloride, Blood 109 mmol/L (98-108); Creatinine, Blood 0.79 mg/dL (0.40-1.00); Globulin, Blood 4.1 g/dL (2.2-4.0); Glomerular Filtration Rate >60 (60-); Glucose, Blood 105 mg/dL (70-99); Potassium, Blood 3.6 mmol/L (3.5-5.5); Sodium, Blood 143 mmol/L (136-145); Total Protein, Blood 7.5 g/dL (6.4-8.2)
== END | disposition home or self-care (01) ==
LOC: LAB SHORT 08:50
PROVIDERS: Internal Medicine Rheumatology
DX: M06.9 Rheumatoid arthritis, unspecified (principal)
CPT/HCPCS: 80053; 85025; 85651

== ENCOUNTER → 2021-05-25 | Outpatient (CLI) | payer OTHER | END | disposition home or self-care (01) | LOC: LAB SHORT 14:50 | DX: Z20.822 Contact with and (suspected) exposure to COVID-19 (principal) | CPT/HCPCS: U0003 ==

== ENCOUNTER 2021-07-10 09:15 | Emergency (ER) | payer OTHER ==
[~2021-07-10] VITALS: Ht 162.6 cm; Wt 74.8 kg
== END 2021-07-10 11:28 | disposition home or self-care (01) ==
LOC: ER 09:15
DX: M54.50 Low back pain, unspecified (principal); G89.29 Other chronic pain; W18.30XA Fall on same level, unspecified, initial encounter; Z88.8 Allergy status to other drugs, medicaments and biological substances; Z79.899 Other long term (current) drug therapy; Z79.52 Long term (current) use of systemic steroids; K21.9 Gastro-esophageal reflux disease without esophagitis; Z87.891 Personal history of nicotine dependence
CPT/HCPCS: 99283

== ENCOUNTER 2021-10-06 13:59 | Emergency (ER) | payer OTHER ==
[~2021-10-06] VITALS: Ht 157.5 cm; Wt 70.3 kg
== END 2021-10-06 16:15 | disposition home or self-care (01) ==
LOC: ER 13:59
DX: R09.89 Other specified symptoms and signs involving the circulatory and respiratory systems (principal); K21.9 Gastro-esophageal reflux disease without esophagitis; Z88.8 Allergy status to other drugs, medicaments and biological substances; Z79.899 Other long term (current) drug therapy
CPT/HCPCS: 71046; 99283-25

== ENCOUNTER 2021-10-22 10:51 | Emergency (ER) | payer OTHER ==
[~2021-10-22] VITALS: Ht 157.5 cm; Wt 65.8 kg
[~2021-10-22 10:51] MED LIST changes: +DULCOLAX400 MG/5 M; +Tessalon200 MG PO; +VITAMIN D310 MC4 PO
[2021-10-22 11:21] LABS: BASOPHILS ABSOLUTE AUTO 0.04 K/mm3 (0.00-0.23); BASOPHILS PERCENT AUTO 1 % (0-2); EOSINOPHILS PERCENT AUTO 1 % (0-6); Hematocrit 42.6 % (33.0-51.0); Hemoglobin 13.7 g/dL (11.5-16.0); IMMATURE GRAN ABSOLUTE AUTO 0.03 K/mm3 (0.00-0.10); IMMATURE GRAN PERCENT AUTO 0 % (0-1); LYMPHOCYTES ABSOLUTE AUTO 1.74 K/mm3 (0.84-5.20); LYMPHOCYTES PERCENT AUTO 23 % (21-46); MONOCYTES ABSOLUTE AUTO 0.81 K/mm3 (0.16-1.47); MONOCYTES PERCENT AUTO 11 % (4-13); Mean Corpuscular HGB 32.4 pg (26.0-34.0); Mean Corpuscular HGB Conc 32.2 g/dL (31.5-36.5); Mean Corpuscular Volume 101 fL (80-100); Mean Platelet Volume 11.8 fL (9.1-12.4); NEUTROPHILS ABSOLUTE AUTO 4.86 K/mm3 (1.96-9.15); NEUTROPHILS PERCENT AUTO 64 % (41-73); Platelet Count 182 K/mm3 (150-400); RDW Coefficient Variation 13.8 % (11.7-14.2); RDW Standard Deviation 50.5 fL (35.1-46.3); Red Blood Cell Count 4.23 M/mm3 (3.80-5.20); White Blood Cell Count 7.58 K/mm3 (4.00-11.30)
[2021-10-22 11:40] LABS: Anion Gap 4 mmol/L (6-16); Blood Urea Nitrogen 15 mg/dL (8-24); Bun/Creatinine Ratio 20.1 (12.0-20.0); CO2, Blood 29 mmol/L (21-32); Calcium, Blood 8.9 mg/dL (8.5-10.1); Chloride, Blood 107 mmol/L (98-108); Creatinine, Blood 0.75 mg/dL (0.40-1.00); Glomerular Filtration Rate >60 (60-); Glucose, Blood 104 mg/dL (70-99); Potassium, Blood 4.6 mmol/L (3.5-5.5); Sodium, Blood 140 mmol/L (136-145)
== END 2021-10-22 13:45 | disposition home or self-care (01) ==
LOC: ER 10:51
PROVIDERS: Emergency Medicine
DX: U07.1 COVID-19 (principal); F03.90 Unspecified dementia, unspecified severity, without behavioral disturbance, psychotic disturbance, mood disturbance, and anxiety; E86.0 Dehydration; K21.9 Gastro-esophageal reflux disease without esophagitis; Z79.899 Other long term (current) drug therapy; Z88.8 Allergy status to other drugs, medicaments and biological substances
CPT/HCPCS: 36415; 80048; 85025; 99285; J7030

== ENCOUNTER 2021-12-18 19:30 | Emergency (ER) | payer OTHER ==
[~2021-12-18] VITALS: Ht 167.6 cm; Wt 72.6 kg
[2021-12-18 19:55] LABS: BASOPHILS ABSOLUTE AUTO 0.08 K/mm3 (0.00-0.23); BASOPHILS PERCENT AUTO 1 % (0-2); EOSINOPHILS ABSOLUTE AUTO 0.14 K/mm3 (0.00-0.68); EOSINOPHILS PERCENT AUTO 2 % (0-6); Hematocrit 45.7 % (33.0-51.0); Hemoglobin 15.1 g/dL (11.5-16.0); IMMATURE GRAN ABSOLUTE AUTO 0.02 K/mm3 (0.00-0.10); IMMATURE GRAN PERCENT AUTO 0 % (0-1); LYMPHOCYTES ABSOLUTE AUTO 2.36 K/mm3 (0.84-5.20); LYMPHOCYTES PERCENT AUTO 28 % (21-46); MONOCYTES ABSOLUTE AUTO 0.84 K/mm3 (0.16-1.47); MONOCYTES PERCENT AUTO 10 % (4-13); Mean Corpuscular HGB 32.2 pg (26.0-34.0); Mean Corpuscular Volume 97 fL (80-100); Mean Platelet Volume 11.6 fL (9.1-12.4); NEUTROPHILS PERCENT AUTO 59 % (41-73); Platelet Count 195 K/mm3 (150-400); RDW Coefficient Variation 14.3 % (11.7-14.2); Red Blood Cell Count 4.69 M/mm3 (3.80-5.20); White Blood Cell Count 8.44 K/mm3 (4.00-11.30)
[2021-12-18 20:25] LABS: Alanine Aminotransfer (ALT/SGP 59 U/L (12-78); Albumin/Globulin Ratio 0.9 (0.8-1.8); Alk Phos 105 U/L (50-136); Anion Gap 8 mmol/L (6-16); Aspartate Aminotrans (AST/SGOT 45 U/L (12-37); Bilirubin, Total 0.7 mg/dL (0.1-1.0); Blood Urea Nitrogen 13 mg/dL (8-24); Bun/Creatinine Ratio 16.2 (12.0-20.0); CO2, Blood 25 mmol/L (21-32); Calcium, Blood 9.6 mg/dL (8.5-10.1); Chloride, Blood 106 mmol/L (98-108); Globulin, Blood 4.3 g/dL (2.2-4.0); Glomerular Filtration Rate >60 (60-); Glucose, Blood 120 mg/dL (70-99); Potassium, Blood 3.9 mmol/L (3.5-5.5); Sodium, Blood 139 mmol/L (136-145); Total Protein, Blood 8.3 g/dL (6.4-8.2)
[2021-12-18 20:45] LABS: Source, Urine Clean Catch
[2021-12-18 20:55] LABS: Appearance, Urine Hazy (Clear); Bilirubin, Urine Neg (Neg); Blood, Urine Neg (Neg); Color, Urine Yellow (P-Yellow); Glucose Qualitative, Urine Neg (Neg); Ketones, Urine Neg (Neg); Leukocyte Esterase, Urine 1+ (Neg); Nitrite, Urine Neg (Neg); Protein, Urine Neg (Neg); Urobilinogen, Urine NORM (Normal)
[2021-12-18 21:04] LABS: Amorphous Mod (0-Heavy)
[2021-12-18 21:05] LABS: Red Blood Cells, Urine Not Seen /hpf (0-2); Squamous Epithelial Cells Rare /hpf (Few)
[2021-12-18 21:06] LABS: Bacteria Many /hpf
[2021-12-18 22:03] LABS: Influenza A, PCR NEGATIVE (NEGATIVE); Influenza B, PCR NEGATIVE (NEGATIVE); Resp Syncytial Virus, PCR NEGATIVE (NEGATIVE); SARS-Cov-2 (COVID-19) PCR, MMC NEGATIVE (NEGATIVE)
[2021-12-18] MEDS ORDERED: CEPH500 PO (23:00)
== END 2021-12-19 00:23 | disposition home or self-care (01) ==
LOC: ER 19:30
PROVIDERS: Emergency Medicine
DX: N39.0 Urinary tract infection, site not specified (principal); Z88.8 Allergy status to other drugs, medicaments and biological substances; Z79.899 Other long term (current) drug therapy; Z79.52 Long term (current) use of systemic steroids; K21.9 Gastro-esophageal reflux disease without esophagitis
CPT/HCPCS: 0241U; 36415; 70450; 71045; 80053; 81001; 83605; 83690; 83880; 84484; 85025; 87077; 87086; 87186; 93005; 93010; 99285-25; A9270

== ENCOUNTER 2022-02-05 08:47 | Emergency (ER) | payer OTHER ==
[~2022-02-05] VITALS: Ht 160 cm; Wt 61.2 kg
== END 2022-02-05 11:05 | disposition home or self-care (01) ==
LOC: ER 08:47
DX: F03.90 Unspecified dementia, unspecified severity, without behavioral disturbance, psychotic disturbance, mood disturbance, and anxiety (principal); K21.9 Gastro-esophageal reflux disease without esophagitis; Z79.899 Other long term (current) drug therapy; Z96.642 Presence of left artificial hip joint; Z96.652 Presence of left artificial knee joint; Z88.8 Allergy status to other drugs, medicaments and biological substances; W19.XXXA Unspecified fall, initial encounter
CPT/HCPCS: 99283

== ENCOUNTER 2022-04-15 23:33 | Emergency (ER) | payer OTHER ==
[~2022-04-15] VITALS: Ht 152.4 cm; Wt 68.0 kg
== END 2022-04-16 01:57 | disposition home or self-care (01) ==
LOC: ER 23:33
DX: Z04.3 Encounter for examination and observation following other accident (principal); W19.XXXA Unspecified fall, initial encounter; Z87.891 Personal history of nicotine dependence
CPT/HCPCS: 99283

== ENCOUNTER 2022-05-14 19:07 | Emergency (ER) | payer OTHER ==
[~2022-05-14] VITALS: Ht 160 cm; Wt 86.2 kg
[2022-05-14 21:22] LABS: BASOPHILS ABSOLUTE AUTO 0.05 K/mm3 (0.00-0.23); BASOPHILS PERCENT AUTO 1 % (0-2); EOSINOPHILS ABSOLUTE AUTO 0.05 K/mm3 (0.00-0.68); EOSINOPHILS PERCENT AUTO 1 % (0-6); Hematocrit 40.1 % (33.0-51.0); Hemoglobin 13.2 g/dL (11.5-16.0); IMMATURE GRAN ABSOLUTE AUTO 0.03 K/mm3 (0.00-0.10); IMMATURE GRAN PERCENT AUTO 0 % (0-1); LYMPHOCYTES ABSOLUTE AUTO 1.35 K/mm3 (0.84-5.20); LYMPHOCYTES PERCENT AUTO 15 % (21-46); MONOCYTES ABSOLUTE AUTO 0.66 K/mm3 (0.16-1.47); MONOCYTES PERCENT AUTO 7 % (4-13); Mean Corpuscular HGB 31.7 pg (26.0-34.0); Mean Corpuscular HGB Conc 32.9 g/dL (31.5-36.5); Mean Corpuscular Volume 96 fL (80-100); Mean Platelet Volume 11.7 fL (9.1-12.4); NEUTROPHILS ABSOLUTE AUTO 7.03 K/mm3 (1.96-9.15); NEUTROPHILS PERCENT AUTO 77 % (41-73); Platelet Count 192 K/mm3 (150-400); RDW Coefficient Variation 13.8 % (11.7-14.2); RDW Standard Deviation 49.1 fL (35.1-46.3); Red Blood Cell Count 4.17 M/mm3 (3.80-5.20); White Blood Cell Count 9.17 K/mm3 (4.00-11.30)
[2022-05-14 21:26] LABS: Bun/Creatinine Ratio 12.8 (12.0-20.0); Calcium, Blood 8.6 mg/dL (8.5-10.1); Creatinine, Blood 0.78 mg/dL (0.40-1.00); Magnesium, Blood 2.3 mg/dL (1.6-2.4); Potassium, Blood 3.4 mmol/L (3.5-5.5)
== END 2022-05-15 00:20 | disposition home or self-care (01) ==
LOC: ER 19:07
PROVIDERS: Student in an Organized Health Care Education/Training Program
DX: R00.0 Tachycardia, unspecified (principal); F03.90 Unspecified dementia, unspecified severity, without behavioral disturbance, psychotic disturbance, mood disturbance, and anxiety; E87.6 Hypokalemia; K21.9 Gastro-esophageal reflux disease without esophagitis; Z87.891 Personal history of nicotine dependence; Z88.8 Allergy status to other drugs, medicaments and biological substances; Z79.899 Other long term (current) drug therapy
CPT/HCPCS: 80048; 83735; 85025; 93005; 93010; 99285-25; A9270

== ENCOUNTER 2022-05-15 02:05 | Emergency (ER) | payer OTHER ==
[~2022-05-15] VITALS: Ht 165.1 cm; Wt 77.1 kg
== END 2022-05-15 07:00 | disposition home or self-care (01) ==
LOC: ER 02:05
DX: S09.90XA Unspecified injury of head, initial encounter (principal); F03.90 Unspecified dementia, unspecified severity, without behavioral disturbance, psychotic disturbance, mood disturbance, and anxiety; K21.9 Gastro-esophageal reflux disease without esophagitis; Z79.899 Other long term (current) drug therapy; Z79.52 Long term (current) use of systemic steroids; Z88.8 Allergy status to other drugs, medicaments and biological substances; W19.XXXA Unspecified fall, initial encounter
CPT/HCPCS: 70450; 99283-25

== ENCOUNTER 2022-05-17 15:32 | Emergency (ER) | payer OTHER ==
[~2022-05-17] VITALS: Ht 165.1 cm; Wt 81.7 kg
[2022-05-17] MEDS ORDERED: CEPH500 PO (18:22)
== END 2022-05-17 19:15 | disposition home or self-care (01) ==
LOC: ER 15:32
DX: L03.032 Cellulitis of left toe (principal); K21.9 Gastro-esophageal reflux disease without esophagitis; Z88.8 Allergy status to other drugs, medicaments and biological substances; Z79.899 Other long term (current) drug therapy; Z79.52 Long term (current) use of systemic steroids; Z96.642 Presence of left artificial hip joint; Z96.652 Presence of left artificial knee joint; Z87.891 Personal history of nicotine dependence
CPT/HCPCS: 99283

== ENCOUNTER 2022-06-18 04:10 | Emergency (ER) | payer OTHER ==
[~2022-06-18] VITALS: Ht 160 cm; Wt 68.0 kg
[2022-06-18] MEDS ORDERED: BISA5EC PO (04:51)
[2022-06-18] MEDS ORDERED: FERSU300 (04:51)
[2022-06-18] MEDS ORDERED: FLUTICASONE-SA1 EAC1 INH (04:53)
[2022-06-18] MEDS ORDERED: ENSURE PLUS HI237 ML PO (04:54)
[2022-06-18] MEDS ORDERED: METAMUCIL POWD575 GM PO (04:55)
[2022-06-18] MEDS ORDERED: THERA-D2000 UNIT PO (04:56)
[2022-06-18] MEDS ORDERED: LIDOCAINE1 EAC1 TOP (23:36)
== END 2022-06-18 07:40 | disposition home or self-care (01) ==
LOC: ER 04:10
DX: S70.02XA Contusion of left hip, initial encounter (principal); K21.9 Gastro-esophageal reflux disease without esophagitis; Z88.8 Allergy status to other drugs, medicaments and biological substances; Z79.899 Other long term (current) drug therapy; Z87.891 Personal history of nicotine dependence; W18.30XA Fall on same level, unspecified, initial encounter
CPT/HCPCS: 73502; A9270

== ENCOUNTER 2022-06-18 22:34 | Emergency (ER) | payer OTHER ==
[~2022-06-18] VITALS: Ht 160 cm; Wt 60.3 kg
[~2022-06-18 22:34] MED LIST changes: +ENSURE PLUS HI237 ML PO; +FERSU300; +FLUTICASONE-SA1 EAC1 INH; +METAMUCIL POWD575 GM PO; +THERA-D2000 UNIT PO
[2022-06-18] MEDS ORDERED: LIDOCAINE1 EAC1 TOP (23:36)
== END 2022-06-19 01:22 | disposition home or self-care (01) ==
LOC: ER 22:34
DX: S20.212A Contusion of left front wall of thorax, initial encounter (principal); K21.9 Gastro-esophageal reflux disease without esophagitis; F03.90 Unspecified dementia, unspecified severity, without behavioral disturbance, psychotic disturbance, mood disturbance, and anxiety; Z88.8 Allergy status to other drugs, medicaments and biological substances; Z79.899 Other long term (current) drug therapy; W18.30XA Fall on same level, unspecified, initial encounter; Z79.52 Long term (current) use of systemic steroids; Z87.891 Personal history of nicotine dependence
CPT/HCPCS: 71101; A9270

== ENCOUNTER 2022-07-06 21:47 | Emergency (ER) | payer OTHER ==
[~2022-07-06] VITALS: Ht 167.6 cm; Wt 79.4 kg
[~2022-07-06 21:47] MED LIST changes: +LIDOCAINE1 EAC1 TOP
== END 2022-07-07 04:09 | disposition home or self-care (01) ==
LOC: ER 21:47
DX: S51.812A Laceration without foreign body of left forearm, initial encounter (principal); F03.90 Unspecified dementia, unspecified severity, without behavioral disturbance, psychotic disturbance, mood disturbance, and anxiety; W18.30XA Fall on same level, unspecified, initial encounter; Z88.5 Allergy status to narcotic agent; Z79.899 Other long term (current) drug therapy; Z79.52 Long term (current) use of systemic steroids; Z87.891 Personal history of nicotine dependence
CPT/HCPCS: 70450; 72125; 93005; 93010

== ENCOUNTER 2022-09-04 11:07 | Emergency (ER) | payer OTHER ==
[~2022-09-04] VITALS: Ht 165.1 cm; Wt 61.2 kg
[2022-09-04] MEDS ORDERED: ALBU90OI INH (11:55)
[2022-09-04] MEDS ORDERED: BENZ100A PO (11:55)
== END 2022-09-04 15:30 | disposition home or self-care (01) ==
LOC: ER 11:07
DX: J06.9 Acute upper respiratory infection, unspecified (principal); Z20.828 Contact with and (suspected) exposure to other viral communicable diseases; K21.9 Gastro-esophageal reflux disease without esophagitis; Z88.5 Allergy status to narcotic agent; Z79.899 Other long term (current) drug therapy
CPT/HCPCS: 71045

== ENCOUNTER 2022-09-17 09:15 | Emergency (ER) | payer OTHER ==
[~2022-09-17] VITALS: Ht 167.6 cm; Wt 65.8 kg
[~2022-09-17 09:15] MED LIST changes: +ALBU90OI INH; +BENZ100A PO
[2022-09-17] MEDS ORDERED: ASPIR 8181 MG PO (09:25)
[2022-09-17] MEDS ORDERED: CENTRUM SILVER1 EAC2 PO (09:26)
[2022-09-17 11:28] LABS: Source, Urine Clean Catch
[2022-09-17 11:38] LABS: BASOPHILS ABSOLUTE AUTO 0.09 K/mm3 (0.00-0.23); BASOPHILS PERCENT AUTO 1 % (0-2); EOSINOPHILS ABSOLUTE AUTO 0.19 K/mm3 (0.00-0.68); EOSINOPHILS PERCENT AUTO 3 % (0-6); Hematocrit 40.4 % (33.0-51.0); Hemoglobin 13.4 g/dL (11.5-16.0); IMMATURE GRAN ABSOLUTE AUTO 0.09 K/mm3 (0.00-0.10); IMMATURE GRAN PERCENT AUTO 1 % (0-1); LYMPHOCYTES ABSOLUTE AUTO 2.01 K/mm3 (0.84-5.20); LYMPHOCYTES PERCENT AUTO 30 % (21-46); MONOCYTES PERCENT AUTO 9 % (4-13); Mean Corpuscular HGB 30.1 pg (26.0-34.0); Mean Corpuscular HGB Conc 33.2 g/dL (31.5-36.5); Mean Corpuscular Volume 91 fL (80-100); NEUTROPHILS ABSOLUTE AUTO 3.67 K/mm3 (1.96-9.15); NEUTROPHILS PERCENT AUTO 55 % (41-73); Platelet Count 339 K/mm3 (150-400); RDW Coefficient Variation 13.2 % (11.7-14.2); RDW Standard Deviation 43.9 fL (35.1-46.3); Red Blood Cell Count 4.45 M/mm3 (3.80-5.20); White Blood Cell Count 6.65 K/mm3 (4.00-11.30)
[2022-09-17 11:57] LABS: Appearance, Urine Clear (Clear); Blood, Urine Neg (Neg); Color, Urine Yellow (P-Yellow); Glucose Qualitative, Urine Neg (Neg); Ketones, Urine 3+ (Neg); Leukocyte Esterase, Urine Neg (Neg); Nitrite, Urine Neg (Neg); Protein, Urine 2+ (Neg); Specific Gravity, Urine 1.025 (1.003-1.022); Urobilinogen, Urine 1+ (Normal)
[2022-09-17 12:05] LABS: Magnesium, Blood 2.3 mg/dL (1.6-2.4)
[2022-09-17 12:12] LABS: Bilirubin, Urine 1+ (Neg)
[2022-09-17 12:13] LABS: Bacteria Rare /hpf; Red Blood Cells, Urine 0-2 /hpf (0-2); Squamous Epithelial Cells Rare /hpf (Few); Transitional Epithelial Cells Rare /hpf (0-Rare); White Blood Cells, Urine 0-2 /hpf (0-5)
[2022-09-17 12:40] LABS: Albumin, Blood 2.2 g/dL (3.4-5.0); Albumin/Globulin Ratio 0.5 (0.8-1.8); Bilirubin, Total 0.4 mg/dL (0.1-1.0); Bun/Creatinine Ratio 18.4 (12.0-20.0); Calcium, Blood 8.5 mg/dL (8.5-10.1); Creatinine, Blood 0.6 mg/dL (0.40-1.00); Globulin, Blood 4.7 g/dL (2.2-4.0); Potassium, Blood 3.3 mmol/L (3.5-5.5); Total Protein, Blood 6.9 g/dL (6.4-8.2)
== END 2022-09-17 14:45 | disposition home or self-care (01) ==
LOC: ER 09:15
PROVIDERS: Physician Assistant
DX: E86.0 Dehydration (principal); G30.9 Alzheimer's disease, unspecified; F02.80 Dementia in other diseases classified elsewhere, unspecified severity, without behavioral disturbance, psychotic disturbance, mood disturbance, and anxiety; Z87.891 Personal history of nicotine dependence
CPT/HCPCS: 36415; 80053; 81001; 83735; 85025; A9270; J7030; P9612

== ENCOUNTER 2022-09-19 09:39 | Emergency (ER) | payer OTHER ==
[~2022-09-19] VITALS: Ht 152.4 cm; Wt 54.4 kg
[~2022-09-19 09:39] MED LIST changes: +ASPIR 8181 MG PO
[2022-09-19 10:47] LABS: BASOPHILS ABSOLUTE AUTO 0.08 K/mm3 (0.00-0.23); BASOPHILS PERCENT AUTO 1 % (0-2); EOSINOPHILS ABSOLUTE AUTO 0.17 K/mm3 (0.00-0.68); EOSINOPHILS PERCENT AUTO 2 % (0-6); Hematocrit 41.9 % (33.0-51.0); Hemoglobin 13.8 g/dL (11.5-16.0); IMMATURE GRAN ABSOLUTE AUTO 0.08 K/mm3 (0.00-0.10); IMMATURE GRAN PERCENT AUTO 1 % (0-1); LYMPHOCYTES ABSOLUTE AUTO 1.41 K/mm3 (0.84-5.20); LYMPHOCYTES PERCENT AUTO 20 % (21-46); MONOCYTES ABSOLUTE AUTO 0.75 K/mm3 (0.16-1.47); MONOCYTES PERCENT AUTO 11 % (4-13); Mean Corpuscular HGB 30.5 pg (26.0-34.0); Mean Corpuscular HGB Conc 32.9 g/dL (31.5-36.5); Mean Corpuscular Volume 93 fL (80-100); Mean Platelet Volume 11.4 fL (9.1-12.4); NEUTROPHILS ABSOLUTE AUTO 4.55 K/mm3 (1.96-9.15); NEUTROPHILS PERCENT AUTO 65 % (41-73); Platelet Count 283 K/mm3 (150-400); RDW Coefficient Variation 13.1 % (11.7-14.2); Red Blood Cell Count 4.52 M/mm3 (3.80-5.20); White Blood Cell Count 7.04 K/mm3 (4.00-11.30)
[2022-09-19] MEDS ORDERED: DOCU100 PO (11:01)
[2022-09-19 11:25] LABS: Free Thyroxine 1.17 ng/dL (0.70-1.60)
[2022-09-19 11:27] LABS: Albumin, Blood 2.3 g/dL (3.4-5.0); Albumin/Globulin Ratio 0.5 (0.8-1.8); Bilirubin, Total 0.4 mg/dL (0.1-1.0); Bun/Creatinine Ratio 12.7 (12.0-20.0); Calcium, Blood 8.7 mg/dL (8.5-10.1); Creatinine, Blood 0.63 mg/dL (0.40-1.00); Globulin, Blood 5.1 g/dL (2.2-4.0); Potassium, Blood 3.5 mmol/L (3.5-5.5); Thyroid Stimulating Hormone 2.36 uIU/mL (0.360-4.800); Total Protein, Blood 7.4 g/dL (6.4-8.2)
[2022-09-19 11:53] LABS: Influenza A, PCR NEGATIVE (NEGATIVE); Influenza B, PCR NEGATIVE (NEGATIVE); Resp Syncytial Virus, PCR NEGATIVE (NEGATIVE); SARS-Cov-2 (COVID-19) PCR, MMC NEGATIVE (NEGATIVE)
== END 2022-09-19 15:35 | disposition home or self-care (01) ==
LOC: ER 09:39
PROVIDERS: Emergency Medicine
DX: R41.0 Disorientation, unspecified (principal); G30.9 Alzheimer's disease, unspecified; F02.80 Dementia in other diseases classified elsewhere, unspecified severity, without behavioral disturbance, psychotic disturbance, mood disturbance, and anxiety; K21.9 Gastro-esophageal reflux disease without esophagitis; Z20.822 Contact with and (suspected) exposure to COVID-19; Z88.8 Allergy status to other drugs, medicaments and biological substances; Z79.899 Other long term (current) drug therapy; Z79.82 Long term (current) use of aspirin
CPT/HCPCS: 0241U; 36415; 70450; 80053; 84439; 84443; 85025; J7030; P9612

== ENCOUNTER 2022-09-27 20:59 | Inpatient (IN) | payer OTHER ==
[~2022-09-27] VITALS: Ht 167.6 cm; Wt 56.7 kg
[~2022-09-27 20:59] MED LIST changes: -FERSU300
[2022-09-27 23:06] LABS: BASOPHILS PERCENT AUTO 1 % (0-2); EOSINOPHILS ABSOLUTE AUTO 0.05 K/mm3 (0.00-0.68); EOSINOPHILS PERCENT AUTO 0 % (0-6); Hematocrit 42.1 % (33.0-51.0); Hemoglobin 13.7 g/dL (11.5-16.0); IMMATURE GRAN ABSOLUTE AUTO 0.05 K/mm3 (0.00-0.10); IMMATURE GRAN PERCENT AUTO 0 % (0-1); LYMPHOCYTES ABSOLUTE AUTO 2.48 K/mm3 (0.84-5.20); LYMPHOCYTES PERCENT AUTO 17 % (21-46); MONOCYTES ABSOLUTE AUTO 1.75 K/mm3 (0.16-1.47); MONOCYTES PERCENT AUTO 12 % (4-13); Mean Corpuscular HGB 30.1 pg (26.0-34.0); Mean Corpuscular HGB Conc 32.5 g/dL (31.5-36.5); Mean Corpuscular Volume 93 fL (80-100); Mean Platelet Volume 11.8 fL (9.1-12.4); NEUTROPHILS ABSOLUTE AUTO 9.91 K/mm3 (1.96-9.15); NEUTROPHILS PERCENT AUTO 69 % (41-73); Platelet Count 371 K/mm3 (150-400); RDW Coefficient Variation 14.2 % (11.7-14.2); RDW Standard Deviation 47.4 fL (35.1-46.3); Red Blood Cell Count 4.55 M/mm3 (3.80-5.20); White Blood Cell Count 14.34 K/mm3 (4.00-11.30)
[2022-09-27 23:08] LABS: Source, Urine Straight Cath
[2022-09-27 23:10] LABS: Blood, Urine 5+ (Neg); Glucose Qualitative, Urine Neg (Neg); Ketones, Urine 3+ (Neg); Leukocyte Esterase, Urine 3+ (Neg); Nitrite, Urine Neg (Neg); Protein, Urine 3+ (Neg); Specific Gravity, Urine 1.025 (1.003-1.022); Urobilinogen, Urine 3+ (Normal)
[2022-09-27 23:16] LABS: Appearance, Urine Hazy (Clear); Bilirubin, Urine 1+ (Neg); Color, Urine Amber (P-Yellow)
[2022-09-27 23:18] LABS: Amorphous Light (0-Heavy); Bacteria Mod /hpf; Squamous Epithelial Cells Not Seen /hpf (Few); White Blood Cells, Urine TNTC /hpf (0-5)
[2022-09-27 23:26] LABS: Albumin, Blood 2.8 g/dL (3.4-5.0); Albumin/Globulin Ratio 0.5 (0.8-1.8); Bilirubin, Total 0.5 mg/dL (0.1-1.0); Bun/Creatinine Ratio 19.2 (12.0-20.0); Calcium, Blood 9.4 mg/dL (8.5-10.1); Creatinine, Blood 0.62 mg/dL (0.40-1.00); Globulin, Blood 5.1 g/dL (2.2-4.0); Potassium, Blood 3.4 mmol/L (3.5-5.5); Total Protein, Blood 7.9 g/dL (6.4-8.2)
--- NOTE | 2022-09-28 08:26 | NUR ---
RN NOTE PT WITH HYPOTENSION. CHECKED MANUALLY AND RESULTS ENTERED. PT LETHARGIC, RESPONDS TO ME OPENING HER EYES WITH MOVEMENT AWAY FROM ME, NON VERBAL. RESTRAINTS REMOVED. DR COURTNEY CALLED AND NOTIFIED. WANTS PT DNR AND TO CONTINUE IVF ORDERED. PER NIGHT RN DAUGHTER CONFIRMED THAT PT WISHES TO BE DNR.
--- NOTE | 2022-09-28 09:53 | NUR ---
RN NOTE PT STILL SLEEPY AND NON VERBAL, BUT WHEN INCONTINENT AND CHANGED SHE WAS STRONG WITH HER ARMS AND LEG, TRIED TO BITE NURSE, THEN SETTLED DOWN TO SLEEP AFTER REPOSITIONED.
--- NOTE | 2022-09-28 17:28 | NUR ---
SHIFT SUMMARY MS NIXON HAS BEEN SLEEPING FOR MOST OF THE DAY. SHE AROUSES WITH REPOSITIONING THEN SETTLES BACK TO SLEEP ALMOST IMMEDIATELY. SHE HAS BEEN MOSTLY NON VERBAL, DID SAY SOME CONFUSED WORDS PER CLINICAL OUTCOMES MANAGER. WHEN SHE IS DISTURBED TO BE REPOSITIONED SHE TENDS TO GRAB AT STAFF. SHE HAS BEEN HYPOTENSIVE. TURNED AND REPOSITIONED EVERY 2 HOURS - PURPLE AREA TO SACRUM WITH MEPILEX IN PLACE AND PRESSURE RELIEF. TELEMETRY SR, NO CALLS FROM LAP CHECKER. HER DAUGHTER VISITED TODAY. SHE HAS GONE HOME TO SLEEP AND SAID SHE WILL BE AVAILABLE IF HER MOTHER GETS AGGITATED AGAIN TONIGHT. BED LOW, CALL LIGHT IN REACH. BED ALARM ON.
--- NOTE | 2022-09-29 06:30 | NUR ---
ALERT TO SELF AND RECOGNIZES DAUGHTER. IMPULSIVE /UNCOOPERATIVE/ ENERGETIC. TELE: SR WITH HR 60s TO 80s. SOFT BPs; IVF PER ORDERS. 3 PERSON ASSIST; ATTEMPTING TO HIT, BITE, PINCH, AND KICK NURSING STAFF DURING EACH Q2 HR REPOSITION/ INC CARE (DESPITE CONSTANT REASSURANCE AND GENTLE APPROACH). PATIENT STATES, "I'M GOING TO PEE ALL OVER YOU" AND "I AM GOING TO BREAK YOUR GLASSES" AND "GET THE F AWAY FROM ME." INITIALLY REFUSES CRUSHED SEROQUEL IN PUDDING; HOWEVER, DOES WELL IF RN SAYS "OPEN UP!" FOR EACH BITE. COCCYX MEPILEX DRSG (PREVENTATIVE, NO OPEN SKIN) IS CDI. SLEEP PROMOTED. CALL LIGHT IN REACH; ENCOURAGED TO MAKE NEEDS KNOWN. BED ALARM SET AND SIDE RAILS UP X3.
[2022-09-29 09:01] LABS: BASOPHILS PERCENT AUTO 2 % (0-2); EOSINOPHILS PERCENT AUTO 6 % (0-6); Hematocrit 33.9 % (33.0-51.0); Hemoglobin 10.9 g/dL (11.5-16.0); IMMATURE GRAN ABSOLUTE AUTO 0.01 K/mm3 (0.00-0.10); IMMATURE GRAN PERCENT AUTO 0 % (0-1); LYMPHOCYTES ABSOLUTE AUTO 1.68 K/mm3 (0.84-5.20); LYMPHOCYTES PERCENT AUTO 31 % (21-46); MONOCYTES ABSOLUTE AUTO 0.71 K/mm3 (0.16-1.47); MONOCYTES PERCENT AUTO 13 % (4-13); Mean Corpuscular HGB 30.4 pg (26.0-34.0); Mean Corpuscular HGB Conc 32.2 g/dL (31.5-36.5); Mean Corpuscular Volume 94 fL (80-100); Mean Platelet Volume 11.8 fL (9.1-12.4); NEUTROPHILS ABSOLUTE AUTO 2.66 K/mm3 (1.96-9.15); NEUTROPHILS PERCENT AUTO 49 % (41-73); Platelet Count 235 K/mm3 (150-400); RDW Coefficient Variation 14.4 % (11.7-14.2); RDW Standard Deviation 48.6 fL (35.1-46.3); Red Blood Cell Count 3.59 M/mm3 (3.80-5.20); White Blood Cell Count 5.46 K/mm3 (4.00-11.30)
--- NOTE | 2022-09-29 18:16 | NUR ---
SHIFT SUMMARY- PT IS ALERT. PT HAD INTERMITTENT BOUTS OF ORIENTATION TO SELF AND TO DAUGHTER. PT WAS CALM AND COOPERATIVE THROUGHOUT THE SHIFT. PT WAS UP TO CHAIR FOR LUNCH AND DINNER. PT ATE 100% OF LUNCH THAT DAUGHTER BROUGHT. DAUGHTER SAID THAT SOMEONE SHOULD SEE PT ON FRIDAY FOR HOSPICE EVALUATION. SPOKE TO DAUGHTER REGARDING HOSPITAL'S ABILITY TO HELP FACILITATE HOSPICE CARE IF NEEDED.
[2022-09-29 18:44] LABS: Albumin, Blood 2.8 g/dL (3.4-5.0); Albumin/Globulin Ratio 0.8 (0.8-1.8); Bilirubin, Total 0.3 mg/dL (0.1-1.0); Bun/Creatinine Ratio 5.3 (12.0-20.0); Calcium, Blood 8.1 mg/dL (8.5-10.1); Creatinine, Blood 0.56 mg/dL (0.40-1.00); Globulin, Blood 3.7 g/dL (2.2-4.0); Potassium, Blood 3.4 mmol/L (3.5-5.5); Total Protein, Blood 6.5 g/dL (6.4-8.2)
--- NOTE | 2022-09-29 18:44 | NUR ---
BMP redraw Potassium infusing in L arm. Patient requesting L arm blood draw. Phleb jonah lab from L arm with resulting potassium at 10+ per lab. Janny BELLAMY took call from lab. BMP to be redrawn from R arm. Awaiting for results.
[2022-09-29] MEDS ORDERED: Ventolin/Prove6.7 GM INH (20:09)
[2022-09-29] MEDS ORDERED: MIDODRINE HCL10 M1 PO (20:10)
--- NOTE | 2022-09-30 05:46 | NUR ---
ALERT TO SELF AND RECOGNIZES DAUGHTER. IMPULSIVE. MORE COOPERATIVE WITH CARE THIS SHIFT TELE: SR WITH HR IN 90s (BRIEFLY 140 PER SKI PATROL OFFICER AT SHIFT START). SOFT BPs; IVF PER ORDERS. 2 PERSON ASSIST; Q2 HR REPOSITION/ INC CARE INITIALLY REFUSES CRUSHED SEROQUEL IN PUDDING; HOWEVER, DOES WELL IF RN SAYS "OPEN UP!" FOR EACH BITE. COCCYX MEPILEX DRSG (PREVENTATIVE, NO OPEN SKIN) IS CDI. SLEEP PROMOTED. CALL LIGHT IN REACH; ENCOURAGED TO MAKE NEEDS KNOWN. BED ALARM SET AND SIDE RAILS UP X3.
--- NOTE | 2022-09-30 08:00 | NUR ---
pt laying in bed awake alert to self and family, kenaitze, calm at this time, was happy to see her daughter when she came in, lungs are clear t/o, on r/a, no cough noted, tele in place running sr per monitor, see strip, no edema noted, ppp+1, cap refill <3sec, vs stable, afebrile, iv site to lfa is puffy and iv not infusing well, will pull and place another, skin has mepilex to coccyx, incontinant of urine, briefs in place, helen, call light in reach.
[2022-09-30 08:44] LABS: BASOPHILS ABSOLUTE AUTO 0.09 K/mm3 (0.00-0.23); BASOPHILS PERCENT AUTO 2 % (0-2); EOSINOPHILS ABSOLUTE AUTO 0.39 K/mm3 (0.00-0.68); EOSINOPHILS PERCENT AUTO 6 % (0-6); Hematocrit 32.2 % (33.0-51.0); Hemoglobin 10.6 g/dL (11.5-16.0); IMMATURE GRAN ABSOLUTE AUTO 0.01 K/mm3 (0.00-0.10); IMMATURE GRAN PERCENT AUTO 0 % (0-1); LYMPHOCYTES ABSOLUTE AUTO 2.03 K/mm3 (0.84-5.20); LYMPHOCYTES PERCENT AUTO 33 % (21-46); MONOCYTES ABSOLUTE AUTO 0.67 K/mm3 (0.16-1.47); MONOCYTES PERCENT AUTO 11 % (4-13); Mean Corpuscular HGB 30.5 pg (26.0-34.0); Mean Corpuscular HGB Conc 32.9 g/dL (31.5-36.5); Mean Corpuscular Volume 93 fL (80-100); Mean Platelet Volume 11.6 fL (9.1-12.4); NEUTROPHILS ABSOLUTE AUTO 2.94 K/mm3 (1.96-9.15); NEUTROPHILS PERCENT AUTO 48 % (41-73); Platelet Count 215 K/mm3 (150-400); RDW Coefficient Variation 14.1 % (11.7-14.2); RDW Standard Deviation 47.6 fL (35.1-46.3); Red Blood Cell Count 3.47 M/mm3 (3.80-5.20); White Blood Cell Count 6.13 K/mm3 (4.00-11.30)
[2022-09-30 08:59] LABS: Albumin, Blood 2.4 g/dL (3.4-5.0); Albumin/Globulin Ratio 0.7 (0.8-1.8); Bilirubin, Total 0.4 mg/dL (0.1-1.0); Bun/Creatinine Ratio 3.6 (12.0-20.0); Creatinine, Blood 0.56 mg/dL (0.40-1.00); Globulin, Blood 3.3 g/dL (2.2-4.0); Potassium, Blood 3.2 mmol/L (3.5-5.5); Total Protein, Blood 5.7 g/dL (6.4-8.2)
[2022-09-30] MEDS ORDERED: NYSTATIN15 GM TOP (11:21)
[2022-09-30] MEDS ORDERED: VISBIOME 112.51 EACH PO (11:22)
[2022-09-30] MEDS ORDERED: CEPH500 PO (11:23)
--- NOTE | 2022-09-30 12:37 | NUR ---
pt has been discharged back to [facility], daughter has been here, went over discharge instructions with her, she verbalized understanding, iv removed intact, waiting for her ride to transport her. she is up to chair eating lunch, call light in reach.
--- NOTE | 2022-09-30 15:45 | NUR ---
[facility], I visit the patient. The patient is sitting on a chair and alert. She immediately talks but the words are all mixed up (alphabet soup) and there is quite a bit of mumbling. There are a few clear words strung together here and there but only enough to keep one engaged and hoping that something solid will be said. So, I continued to ask questions and she continued making facial expressions and looking like she knows exactly what she is saying and that I should too. I smile when she smiles, laugh when she laughs and nod like I have complete understanding. We had quite a long conversation and she showed signs of having a wonderful times feeling loved, listened to and understood. She won't remember it but those moments of connection appear to have lightened her load for that space and time. I will cotmilonue to remain available to patient and family.
--- NOTE | 2022-09-30 17:08 | NUR ---
pt was evaled by [facility], wanted her on hospice prior to returning, this was done, she is scheduled to be picked up by transport, he is here now, daughter has paper work that she took to [facility] this afternoon, pt will leave via wheelchair with all her belongings.
== END 2022-09-30 17:14 | disposition hospice, inpatient (51) | DRG 871 ==
LOC: ER 20:59 → MEDS 09-28 00:38
PROVIDERS: Internal Medicine; Student in an Organized Health Care Education/Training Program; ADMIT Internal Medicine
DX: A41.1 Sepsis due to other specified staphylococcus (principal); G93.41 Metabolic encephalopathy; N39.0 Urinary tract infection, site not specified; E87.1 Hypo-osmolality and hyponatremia; F02.811 Dementia in other diseases classified elsewhere, unspecified severity, with agitation; Z66 Do not resuscitate; Z51.5 Encounter for palliative care; K21.9 Gastro-esophageal reflux disease without esophagitis; G89.29 Other chronic pain; G30.9 Alzheimer's disease, unspecified; R65.20 Severe sepsis without septic shock; M25.512 Pain in left shoulder; E87.6 Hypokalemia; I95.9 Hypotension, unspecified; M06.9 Rheumatoid arthritis, unspecified; E88.09 Other disorders of plasma-protein metabolism, not elsewhere classified; Z96.612 Presence of left artificial shoulder joint; Z96.652 Presence of left artificial knee joint; Z87.820 Personal history of traumatic brain injury; Z90.49 Acquired absence of other specified parts of digestive tract; Z90.710 Acquired absence of both cervix and uterus; Z88.8 Allergy status to other drugs, medicaments and biological substances; Z79.52 Long term (current) use of systemic steroids; Z79.82 Long term (current) use of aspirin; Z79.899 Other long term (current) drug therapy
CPT/HCPCS: 36415; 51701; 80053; 81001; 83605; 83880; 84145; 85025; 87040; 87077; 87086; 87186; 93005; 93010; 96365-59; 97110; 97162; 97530; 99285-25; A9270; J0696; J1630; J1650; J3480; J7030; J7050; P9047